=== PATIENT | female | born 1980 | race Caucasian/White ===

== ENCOUNTER 2017-07-13 11:13 | Inpatient (IN) | payer MEDICARE, OTHER ==
[2017-07-13] MEDS ORDERED: RX INFO: IV CONTRAST WAS GIVEN 1 EACH MISC MISCELLANE PRN (12:01)
[2017-07-13] MEDS ORDERED: PIPERACILLIN-TAZOBACTAM 3.375 GM in DEXTROSE/WATER 1 50ML.BAG IVPB STA (12:02)
[2017-07-13] MEDS ORDERED: KETOROLAC 60 MG/2 ML VIAL IVP STA (12:04)
--- NOTE | 2017-07-13 12:20 | ED ---
General Adult HPI - General Chief complaint: Urogenital Stated complaint: Female Time Seen by Provider: 07/13/17 11:20 Source: patient, RN notes reviewed Mode of arrival: ambulatory Limitations: no limitations - History of Present Illness Initial comments: This is a 36-year-old female who presents emergency Department stating that she thinks she has a abscess lateral to her left labia. Patient states started a few days ago and has progressively gotten bigger and more swollen and more painful. Patient states is now progressing up in the inguinal area and on the labia. Patient states extremely painful. Patient is a diabetic. Patient denies any fever chills. Patient denies abdominal pain. Patient denies any urinary symptoms - Related Data Home Medications Medication Instructions Recorded Confirmed Levothyroxine Sodium 100 mcg PO DAILY 07/13/17 07/13/17 metFORMIN HCL 1,000 mg PO BID 07/13/17 07/13/17 Allergies Allergy/AdvReac Type Severity Reaction Status Date / Time No Known Allergies Allergy Verified 07/13/17 11:21 Review of Systems ROS Statement: Those systems with pertinent positive or pertinent negative responses have been documented in the HPI. ROS Other: All systems not noted in ROS Statement are negative. Past Medical History Past Medical History: Diabetes Mellitus, Thyroid Disorder History of Any Multi-Drug Resistant Organisms: None Reported Past Surgical History: Hysterectomy Past Psychological History: No Psychological Hx Reported Smoking Status: Never smoker Past Alcohol Use History: Rare General Exam - General Exam Comments Initial Comments: GENERAL Patient is well-developed and well-nourished. Patient is in mild distress. EYES Patient's pupils are equal and round. Extraocular motion is intact SKIN Patient has what appears to be an abscess lateral to the left labia and the induration spreads superiorly as well as now into the labia. Area is exquisitely tender to touch and appears to be a cellulitis as well. There is no area of necrosis or skin breakdown NEURO The patient is alert and oriented 3 PYSCH Patient has normal interpersonal interactions. MUSCULOSKELETAL All 4 extremities have full range of motion Limitations: no limitations Course Vital Signs 07/13/17 11:19 Temperature 98.6 F Pulse Rate 115 H Respiratory 18 Rate Blood Pressure 145/93 O2 Sat by Pulse 97 Oximetry Medical Decision Making - Medical Decision Making Computed tomography scan showed a probable Bartholin cyst abscess with surrounding soft tissue cellulitis. I spoke with Dr. Niver and she accepted the patient. - Lab Data Result diagrams: 07/13/17 12:40 07/13/17 12:40 Lab Results 07/13/17 07/13/17 07/13/17 Range/Units 12:40 12:40 12:40 WBC 18.3 H (3.8-10.6) k/uL RBC 5.61 H (3.80-5.40) m/uL Hgb 13.7 (11.4-16.0) gm/dL Hct 43.9 (34.0-46.0) % MCV 78.2 L (80.0-100.0) fL MCH 24.5 L (25.0-35.0) pg MCHC 31.3 (31.0-37.0) g/dL RDW 15.0 (11.5-15.5) % Plt Count 272 (150-450) k/uL Neutrophils % 84 % Lymphocytes % 11 % Monocytes % 4 % Eosinophils % 1 % Basophils % 0 % Neutrophils # 15.3 H (1.3-7.7) k/uL Lymphocytes # 1.9 (1.0-4.8) k/uL Monocytes # 0.7 (0-1.0) k/uL Eosinophils # 0.2 (0-0.7) k/uL Basophils # 0.1 (0-0.2) k/uL Hypochromasia Moderate Sodium 139 (137-145) mmol/L Potassium 4.5 (3.5-5.1) mmol/L Chloride 100 (98-107) mmol/L Carbon Dioxide 22 (22-30) mmol/L Anion Gap 17 mmol/L BUN 12 (7-17) mg/dL Creatinine 0.70 (0.52-1.04) mg/dL Est GFR (CKD-EPI)AfAm >90 (>60 ml/min/1.73 sqM) Est GFR (CKD-EPI)NonAf >90 (>60 ml/min/1.73 sqM) Glucose 386 H (74-99) mg/dL Plasma Lactic Acid Adrian 1.4 (0.7-2.0) mmol/L Calcium 9.3 (8.4-10.2) mg/dL Total Bilirubin 0.9 (0.2-1.3) mg/dL AST 13 L (14-36) U/L ALT 30 (9-52) U/L Alkaline Phosphatase 142 H (38-126) U/L Total Protein 6.6 (6.3-8.2) g/dL Albumin 3.8 (3.5-5.0) g/dL Disposition Clinical Impression: Bartholin's gland abscess, Cellulitis, perineum, Hyperglycemia Disposition: ADMITTED IP TO THIS HOSP Referrals: Irma Harp MD [Primary Care Provider] - 1-2 days Time of Disposition: 14:34
[2017-07-13 13:00] LABS: Basophils # (A) 0.1 k/uL (0-0.2); Basophils % (A) 0 %; Eosinophils # (A) 0.2 k/uL (0-0.7); Eosinophils % (A) 1 %; HCT 43.9 % (34.0-46.0); HGB 13.7 gm/dL (11.4-16.0); Hypochromasia Moderate; Lymphocytes # (A) 1.9 k/uL (1.0-4.8); Lymphocytes % (A) 11 %; MCH 24.5 pg (25.0-35.0); MCHC 31.3 g/dL (31.0-37.0); MCV 78.2 fL (80.0-100.0); Mean Platelet Volume 8.2; Monocytes # (A) 0.7 k/uL (0-1.0); Monocytes % (A) 4 %; Neutrophils # (A) 15.3 k/uL (1.3-7.7); Neutrophils % (A) 84 %; Platelet Count 272 k/uL (150-450); RBC 5.61 m/uL (3.80-5.40); WBC 18.3 k/uL (3.8-10.6)
[2017-07-13 13:14] LABS: ALT 30 U/L (9-52); AST 13 U/L (14-36); Albumin 3.8 g/dL (3.5-5.0); Alkaline Phosphatase 142 U/L (38-126); Anion Gap 17 mmol/L; Blood Urea Nitrogen 12 mg/dL (7-17); Calcium 9.3 mg/dL (8.4-10.2); Carbon Dioxide 22 mmol/L (22-30); Chloride 100 mmol/L (98-107); Glucose 386 mg/dL (74-99); Potassium 4.5 mmol/L (3.5-5.1); Sodium 139 mmol/L (137-145); Total Bilirubin 0.9 mg/dL (0.2-1.3); Total Protein 6.6 g/dL (6.3-8.2)
--- NOTE | 2017-07-13 14:20 | CT ---
EXAMINATION TYPE: CT pelvis w con DATE OF EXAM: 07/13/2017 COMPARISON: NONE HISTORY: Vaginal cyst with drainage and pain CT DLP: 4052.2 mGycm Automated exposure control for dose reduction was used. CONTRAST: Performed with IV Contrast, patient injected with 100 mL of Isovue 300. FINDINGS: There is a fluid attenuated 1.0 x 1.8 cm left Bartholin's gland cyst with extensive surrounding infla mmatory changes of the left pelvic soft tissues extending into the pannus. No subcutaneous emphysema is seen at this time. Inflammatory changes extend to the level of the pubic symphysis superiorly and there are enlarged left inguinal lymph nodes measuring up to 1.2 cm, likely reactive. The uterus is surgically absent and surgical clips are seen within the pelvis. Ovaries may be surgica lly absent or atrophic as they're not identified. Few colonic diverticula are seen without pericoloni c fat stranding. No evidence of bowel dilatation. Urinary bladder is unremarkable. Osseous structures are intact. Visualized portions of the abdomen demonstrate hepatic steatosis, and indeterminant righ t adrenal gland lesion measuring 1.3 cm that is partially visualized, an indeterminate left adrenal g land lesion measuring 1.1 cm, pancreatic parenchymal atrophy, and abdominal aorta that is of normal c ourse and caliber. Kidneys are of symmetric enhancement. IMPRESSION: SMALL 1.8 X 1.0 CM LEFT BARTHOLIN'S GLAND CYST AND EXTENSIVE SUBCUTANEOUS SOFT TISSUES THAT STRANDING IN THE LEFT PERINEUM, LEFT PANNUS, AND EXTENDING INTO THE LEFT SUPERFICIAL INGUINAL REGION. NO SUBCU TANEOUS EMPHYSEMA IS SEEN TO SUGGEST CURRENT NECROTIZING FASCIITIS RADIOGRAPHICALLY, HOWEVER GIVEN TH E LOCATION AND EXTENT OF SUBCUTANEOUS FAT STRANDING, IN CASES WITH VERY HIGH CLINICAL SUSPICION IMAGI NG SHOULD NOT DELAY SURGICAL INTERVENTION.
[2017-07-13] MEDS ORDERED: SODIUM CHLORIDE 0.9% 1,000 ML IV ONE (14:34)
[2017-07-13 15:56] VITALS: BMI 62.0
[2017-07-13 16:19] LABS: Glucose,Whole Blood 373 mg/dL (75-99)
[2017-07-13] MEDS: INSULIN ASPART 100 UNIT/ML 1 ML 10 ML VIAL SQ SCH ×2 (16:34→22:38)
[2017-07-13 18:28] LABS: Appearance,Urine Clear (Clear); Bilirubin,Urine Negative (Negative); Blood,Urine Negative (Negative); Color,Urine Yellow; Glucose,Urine (UA) 4+ (Negative); Leukocyte Esterase,Urine Moderate (Negative); Nitrite,Urine Negative (Negative); Protein,Urine 1+ (Negative); RBC,Urine 14 /hpf (0-5); Squamous Epithelial Cell,Urine 10 /hpf (0-4); Urobilinogen,Urine <2.0 mg/dL (<2.0); WBC,Urine 11 /hpf (0-5)
[2017-07-13] MEDS: KETOROLAC 30 MG/ML 1 ML VIAL IVP PRN (18:28)
[2017-07-13 18:49] LABS: Ketones,Urine 2+ (Negative); Specific Gravity,Urine >1.050 (1.001-1.035)
[2017-07-13 19:55] LABS: Glucose,Whole Blood 369 mg/dL (75-99)
[2017-07-13] MEDS ORDERED: INSULIN DETEMIR 100 UNIT/ML 10 ML VIAL SQ SCH (21:00)
--- NOTE | 2017-07-13 22:12 | HP ---
HISTORY AND PHYSICAL DATE OF SERVICE: 07/13/2017 CHIEF COMPLAINTS: Labial pain. HISTORY OF PRESENT ILLNESS: This 36-year-old woman with a past medical history of diabetes type 2, history of hypothyroidism, history of hysterectomy, being followed by Dr. Irma Harp in the outpatient setting had previously uncontrolled diabetes mellitus for the last since up to 1 and 1/2 months ago according to her. The patient is following with a physician regularly at this time and the patient is noted to have pain and swelling of the labial area and the patient was found to have Bartholin gland abscess and with perineal cellulitis. The patient admitted for further evaluation and treatment. Blood sugar is elevated 386. There is no history of any fever, rigors or chills. No history of headache, loss of consciousness, seizures. PAST MEDICAL HISTORY: History of diabetes type 2, history of hypothyroidism, history of uterine problems, and a history of hysterectomy. MEDICATIONS ARE: 1. Metformin 1000 mg b.i.d. 2. Levothyroxine 200 mg p.o. daily. 3. Lipitor 10 mg q.h.s. 4. Cozaar 25 mg q.h.s. ALLERGIES: None. FAMILY HISTORY: History of diabetes in the family. SOCIAL HISTORY: Previous history of smoking. No history of current smoking. No alcohol intake. REVIEW OF SYSTEMS: ENT: No diminished vision, no diminished hearing. Cardiovascular system: No angina or palpitations. Respiratory: No cough or hemoptysis. GI as mentioned earlier. : As mentioned earlier. Nervous system: No numbness or weakness. Allergy/Immunology: No asthma or hayfever. Musculoskeletal as mentioned earlier. Hematology/oncology: No history of anemia. Endocrine: Diabetes and hypothyroidism. Constitutional: As mentioned earlier. Dermatology: Negative. Rheumatology: Negative. Psychiatric: As mentioned earlier. PHYSICAL EXAMINATION: The patient is alert and oriented times three. Pulse 115. Blood pressure is 130/72. Respiratory rate 16, temperature 99 degrees, pulse ox 94% on room air. HEENT: Conjunctivae normal. Oral mucosa moist. NECK is no jugular venous distention. No carotid bruit. No lymph node enlargement. CARDIOVASCULAR system: S1, S2. RESPIRATORY: Breath sounds diminished in the bases. No rhonchi and no crackles. ABDOMEN: Soft, obese, nontender. No mass palpable. LEGS: No edema and no swelling. NERVOUS SYSTEM: Higher functions as mentioned earlier. Moves all four limbs. No focal motor or sensory deficits. LYMPHATICS: No lymph nodes palpable in the neck, axillae or groin. SKIN: No ulcer, rash or bleeding. LABS: WBC 18.8, hemoglobin 13.7, glucose 80. ASSESSMENT: 1. Possible Bartholin's gland abscess with cellulitis. 2. Increased WBC. 3. Diabetes type 2, uncontrolled with hyperglycemia. 4. Obesity with body mass index 62. 5. Hypothyroidism. 6. History of hysterectomy. RECOMMENDATION AND DISCUSSION: In this 36-year-old woman who presented with multiple complex medical issues, we will monitor the patient closely, continue the current medications, continue symptomatic treatment. Otherwise at this time I recommend resume the metformin. The hemoglobin A1c is not available. However, I would recommend initiate Lantus 20 units and continue to monitor. I would also recommend mealtime coverage as well plus scale as well. DVT prophylaxis. Otherwise I will closely follow with [facility] TECHNICIAN Dr. Haywood. Prognosis guarded because of multiple complex medical issues. Copy of dictation forwarded to Dr. Irma Harp. Once again, the prognosis is guarded. MMODL / IJN: [id number] /
[2017-07-13] MEDS: PIPERACILLIN-TAZOBACTAM 3.375 GM in DEXTROSE/WATER 1 50ML.BAG IVPB SCH (22:36)
[2017-07-13] MEDS: HEPARIN SODIUM,PORCINE 5,000 UNIT/ML 1 ML VIAL SQ SCH (22:36)
[2017-07-13] MEDS: LOSARTAN 25 MG TAB PO SCH (22:37)
[2017-07-13] MEDS: ATORVASTATIN 10 MG TAB PO SCH (22:37)
[2017-07-13] MEDS: metFORMIN 500 MG TAB PO SCH (22:37)
[2017-07-13] MEDS: ACETAMINOPHEN TAB 325 MG TAB PO PRN (23:59)
[2017-07-14] MEDS: LEVOTHYROXINE 100 MCG TAB PO SCH (05:00)
[2017-07-14] MEDS: PIPERACILLIN-TAZOBACTAM 3.375 GM in DEXTROSE/WATER 1 50ML.BAG IVPB SCH ×3 (06:30→20:52)
[2017-07-14] MEDS: KETOROLAC 30 MG/ML 1 ML VIAL IVP PRN ×3 (06:44→22:09)
[2017-07-14 06:47] LABS: Glucose,Whole Blood 301 mg/dL (75-99)
[2017-07-14] MEDS: INSULIN ASPART 100 UNIT/ML 1 ML 10 ML VIAL SQ SCH ×7 (08:14→20:53)
[2017-07-14] MEDS: HEPARIN SODIUM,PORCINE 5,000 UNIT/ML 1 ML VIAL SQ SCH ×2 (08:15→20:53)
[2017-07-14] MEDS: metFORMIN 500 MG TAB PO SCH ×2 (08:15→20:52)
--- NOTE | 2017-07-14 09:21 | P.OBCN ---
History of Present Illness Consult date: 07/14/17 Reason for consult: pelvic infection Chief complaint: Left vulvar pain and swelling History of present illness: This is a 36-year-old female 1 para 100 one last menstrual period 2009 at the time of TRAE/BSO and staging procedure at [facility] for uterine cancer. Patient presents through the emergency room last night, with a 2 day history of left groin swelling. She states that the area has become increasingly tender and enlarged. She was seen in the emergency room where examination was consistent with a left vulvar abscess, emergency room physicians felt this was a Bartholin's cyst. White count was elevated at 18.3, decision was made for admission and antibiotics. Patient was started on Zosyn to 8 hours IV piggyback. Review of systems is otherwise negative. Past medical history is significant for uncontrolled diabetes, I Poehler thyroidism. Current medications metformin 1000 mg twice a day, patient states that she ran out of medication several months ago and has not been taking this as directed. Levothyroxine 200 mg daily, losartan daily, Lipitor daily. ALLERGIES none known. Past surgical history staging procedure for uterine cancer in 2009 at [facility]. Tonsillectomy and adenoidectomy as a child. Past obstetric history normal spontaneous vaginal delivery of a liveborn male infant in 1999, 7 lbs. 7 oz. Patient denies GC chlamydia HSV or HPV infections. She is not sexually active at this time. Social history is negative for tobacco alcohol or drug use. She is single and unemployed, on Medicare. Family history significant for uterine cancer in the maternal grandmother. On exam this is a very large white female, 5 foot 9 inches, 420 pounds, current pulse 105, blood pressure 109/61, T-max 99.3. HEENT exam reveals good dentition , no obvious thyromegaly, no lymphadenopathy. Chest is clear to auscultation in all ordonez anteriorly and posteriorly. Cardiac exam reveals slight tachycardia, no obvious murmur click or rub. Breast exam reveals breasts to be bilaterally symmetric to inspection with no skin dimpling, nipple discharge, or axillary adenopathy. Abdomen is morbidly obese, there is no obvious organosplenomegaly and no CVA tenderness. Extremities reveal diminished peripheral pulses, normal reflexes. On pelvic exam there is a left inguinal abscess noted, this is in the crease between the large pannus in the upper thigh on the left. There is surrounding cellulitis, erythema and edema. There is an abscess that measures approximate 2 cm in the crease, this has opened spontaneously and is draining bloody purulent fluid. Aerobic and anaerobic cultures are performed. There is another area of opening just superior to this that is also draining purulent fluid, non-malodorous. I reviewed the computed tomography scan findings with the radiologist station superintendent, there is no obvious large mass that would be amenable to incision and drainage. Impression: Left labial abscess in the setting of uncontrolled diabetes, blood sugar on admission 386. The abscess has spontaneously opened and is draining. There is no area for surgical intervention in my judgment. Plan: Continue medical management with Zosyn. I am recommending twice daily washing of the area with antibacterial soap, this has been done at the bedside this morning. Patient has never had a mammogram, consideration for same during this hospitalization. Thank you for the consult. Review of Systems Negative except as in HPI Past Medical History Past Medical History: Cancer, Diabetes Mellitus, Thyroid Disorder Additional Past Medical History / Comment(s): uterine cancer 2010, morbid obesity History of Any Multi-Drug Resistant Organisms: None Reported Past Surgical History: Hysterectomy Past Anesthesia/Blood Transfusion Reactions: Blood Transfusion Reaction Additional Past Anesthesia/Blood Transfusion Reaction / Comm: previous multiple blood transfusions- has pink card she is to carry with her but does not have it at this time. Past Psychological History: No Psychological Hx Reported Smoking Status: Former smoker Past Alcohol Use History: Rare - Past Family History Mother Family Medical History: Diabetes Mellitus Father Family Medical History: Congestive Heart Failure (CHF) Medications and Allergies Home Medications Medication Instructions Recorded Confirmed Type Atorvastatin [Lipitor] 10 mg PO HS 07/13/17 07/13/17 History Levothyroxine Sodium [Synthroid] 200 mcg PO DAILY 07/13/17 07/13/17 History Losartan [Cozaar] 25 mg PO HS 07/13/17 07/13/17 History metFORMIN HCL 1,000 mg PO BID 07/13/17 07/13/17 History Allergies Allergy/AdvReac Type Severity Reaction Status Date / Time No Known Allergies Allergy Verified 07/13/17 14:44 Exam - Vital Signs Vital signs: Vital Signs Temp Pulse Pulse Resp BP BP Pulse Ox 07/14/17 07:00 98 F 118 H 18 130/81 95 07/14/17 01:13 99.3 F 105 H 17 109/61 95 07/13/17 22:34 98.9 F 105 H 16 132/82 95 07/13/17 16:20 99.0 F 115 H 16 135/74 94 L 07/13/17 15:00 99.9 F H 101 H 20 165/79 99 07/13/17 13:21 108 H 20 155/63 99 07/13/17 11:19 98.6 F 115 H 18 145/93 97 Intake and Output 07/13/17 07/14/17 07/14/17 22:59 06:59 14:59 Other: Voiding Method Toilet # Voids 1 1 Weight 190.509 kg See dictation under HPI please Results Result Diagrams: 07/13/17 12:40 07/13/17 12:40 Abnormal Lab Results - Last 24 Hours (Table) 07/13/17 07/13/17 07/13/17 Range/Units 12:40 12:40 16:17 WBC 18.3 H (3.8-10.6) k/uL RBC 5.61 H (3.80-5.40) m/uL MCV 78.2 L (80.0-100.0) fL MCH 24.5 L (25.0-35.0) pg Neutrophils # 15.3 H (1.3-7.7) k/uL Glucose 386 H (74-99) mg/dL POC Glucose (mg/dL) 373 H (75-99) mg/dL AST 13 L (14-36) U/L Alkaline Phosphatase 142 H (38-126) U/L Ur Specific [place] (1.001-1.035) Urine Protein (Negative) Urine Glucose (UA) (Negative) Urine Ketones (Negative) Ur Leukocyte Esterase (Negative) Urine RBC (0-5) /hpf Urine WBC (0-5) /hpf Ur Squamous Epith Cells (0-4) /hpf 07/13/17 07/13/17 07/14/17 Range/Units 18:00 19:48 06:44 WBC (3.8-10.6) k/uL RBC (3.80-5.40) m/uL MCV (80.0-100.0) fL MCH (25.0-35.0) pg Neutrophils # (1.3-7.7) k/uL Glucose (74-99) mg/dL POC Glucose (mg/dL) 369 H 301 H (75-99) mg/dL AST (14-36) U/L Alkaline Phosphatase (38-126) U/L Ur Specific [place] >1.050 H (1.001-1.035) Urine Protein 1+ H (Negative) Urine Glucose (UA) 4+ H (Negative) Urine Ketones 2+ H (Negative) Ur Leukocyte Esterase Moderate H (Negative) Urine RBC 14 H (0-5) /hpf Urine WBC 11 H (0-5) /hpf Ur Squamous Epith Cells 10 H (0-4) /hpf Microbiology - Last 24 Hours (Table) 07/13/17 18:00 Urine Culture - Preliminary Urine,Clean Catch Assessment and Plan Assessment: Left inguinal abscess, surrounding cellulitis and edema. Morbid obesity. Uncontrolled diabetes. Plan: I agree with Zosyn IV piggyback every 8 hours. There is no area of omental to incision and drainage, and the lesion has spontaneously opened in 2 areas and is draining purulence. Aerobic and anaerobic cultures performed and pending. Time with Patient: Greater than 30
[2017-07-14] MEDS: ACETAMINOPHEN TAB 325 MG TAB PO PRN ×2 (09:42→19:14)
[2017-07-14 11:09] LABS: Glucose,Whole Blood 278 mg/dL (75-99)
[2017-07-14] MEDS ORDERED: INSULIN DETEMIR 100 UNIT/ML 10 ML VIAL SQ STA (14:31)
[2017-07-14 16:16] LABS: Basophils % (A) 0 %; Eosinophils # (A) 0.2 k/uL (0-0.7); Eosinophils % (A) 2 %; HCT 40.7 % (34.0-46.0); HGB 12.4 gm/dL (11.4-16.0); Hypochromasia Marked; Lymphocytes # (A) 1.9 k/uL (1.0-4.8); Lymphocytes % (A) 13 %; MCH 24.1 pg (25.0-35.0); MCHC 30.4 g/dL (31.0-37.0); MCV 79.4 fL (80.0-100.0); Monocytes # (A) 0.4 k/uL (0-1.0); Monocytes % (A) 3 %; Neutrophils # (A) 11.3 k/uL (1.3-7.7); Neutrophils % (A) 81 %; Platelet Count 285 k/uL (150-450); RBC 5.13 m/uL (3.80-5.40); RDW 15.1 % (11.5-15.5); WBC 13.9 k/uL (3.8-10.6)
[2017-07-14 16:27] LABS: Anion Gap 18 mmol/L; Blood Urea Nitrogen 19 mg/dL (7-17); Calcium 8.7 mg/dL (8.4-10.2); Carbon Dioxide 21 mmol/L (22-30); Chloride 103 mmol/L (98-107); Glucose 296 mg/dL (74-99); Sodium 142 mmol/L (137-145)
[2017-07-14 16:37] LABS: Glucose,Whole Blood 280 mg/dL (75-99)
--- NOTE | 2017-07-14 19:07 | PN ---
PROGRESS NOTE DATE OF SERVICE: 07/14/2017 This 36-year-old woman was admitted with labial pain and possible cellulitis, a labial abscess and cellulitis, which the patient was evaluated by Dr. Haywood and a spontaneous drainage was noted, so Dr. Haywood is recommending to continue with current line of treatment, including IV antibiotics. Cultures are pending at this time. No chest pain or palpitations. The patient also had uncontrolled diabetes mellitus. Medications are being adjusted. EXAM: Alert and oriented x3. Pulse 101, blood pressure 109/76, respirations 16, temperature 99 degrees, pulse ox 93% on room air. HEENT: Conjunctivae normal. Oral mucosa moist. NECK: No jugular venous distention. No carotid bruits. No lymph node enlargement. CARDIOVASCULAR: S1, S2 muffled. RESPIRATORY: Breath sounds diminished in the bases. No scattered rhonchi. No crackles. ABDOMEN: Soft, obese, nontender. No mass palpable. LEGS: No edema. No swelling. NERVOUS SYSTEM: Higher functions as mentioned earlier. Moves all 4 limbs. No focal motor or sensory deficits. LYMPHATIC: No lymphadenopathy in neck or axillae. SKIN: No ulcer, rash or bleeding. LABS: WBC 18.3, glucose is 278. Other labs are noted. ASSESSMENT: 1. Acute labial abscess with cellulitis with failure of outpatient treatment. 2. Increased WBC. 3. Diabetes mellitus type 2, uncontrolled with hyperglycemia. 4. Obesity with a body mass index of 62. 5. Hypothyroidism. 6. Hysterectomy. RECOMMENDATIONS AND DISCUSSION: Recommend to continue current medical management and symptomatic treatment. I would recommend to continue with IV antibiotics and I would also recommend an infectious disease evaluation. Otherwise, DVT prophylaxis. Initial CT scan noted. Will continue to monitor. The repeat labs are not available today. We will order them. Otherwise, continue to monitor. The blood sugars have been noted and increased the Lantus to 40 units with pre-meal insulin, also. Further recommendations to follow. MMODL / IJN: [id number] /
[2017-07-14 20:30] LABS: Glucose,Whole Blood 307 mg/dL (75-99)
[2017-07-14] MEDS: ATORVASTATIN 10 MG TAB PO SCH (20:52)
[2017-07-14] MEDS: LOSARTAN 25 MG TAB PO SCH (20:52)
[2017-07-14] MEDS: INSULIN DETEMIR 100 UNIT/ML 10 ML VIAL SQ SCH (20:53)
[2017-07-14 22:17] LABS: Hemoglobin A1C 11.8 % (4.0-6.0)
--- NOTE | 2017-07-14 23:32 | CONS ---
CONSULTATION DATE OF SERVICE: 07/14/2017 REASON FOR CONSULTATION: Left perineal abscess. HISTORY OF PRESENT ILLNESS: The patient is a 36 -year-old female with past medical history significant for uterine cancer. The patient is status post total abdominal hysterectomy and bilateral salpingo-oophorectomy, diagnosed at [facility] back in 2009. The patient presented to the ER at [facility] with chief complaint of pain and swelling to the left groin area that had been going on for about 2 days. The patient did mention that started as a small pimple and has gradually increased in size. She did try to squeeze anything out of it. Subsequently did become more swollen and red and painful pain described to be throbbing almost 7 to 8/10, and no radiation. The patient did have associated fever and chills with it. With these symptoms, the patient presented to the hospital. She was evaluated by the ER physician. She did have fever of 99.9, white count was elevated at 19.3. The patient did have a pelvic CT obtained which did show a small 1.1 cm left Bartholin gland cyst and extensive subcutaneous soft tissue stranding in the left perineum, left pannus and extending into the left superficial inguinal region. No subcutaneous emphysema is seen to suggest necrotizing fascitis . The patient did have drainage from that area which has been cultured. She was started on Zosyn and admitted to the hospital. She has been seen by [facility]. Infectious Disease was consulted for further recommendation regarding antibiotic therapy. REVIEW OF SYSTEMS: CONSTITUTIONAL: Positive for weakness along with the fever. Eyes: No complaint. ENT no complaint. Respiratory no complaint. Cardiovascular no complaint. Genitourinary as per HPI. GASTROINTESTINAL: Some nausea but no vomiting. Musculoskeletal: No complaint. Psychological: No complaint. Endocrine: Blood sugar remains to be high. Neurologic: No complaint. PAST MEDICAL HISTORY: Significant for diabetes mellitus, uterine cancer and hypothyroidism. PAST SURGICAL HISTORY: Hysterectomy. SOCIAL HISTORY: Denies smoking. Rarely drinks. No drug use. FAMILY HISTORY: No pertinent findings noticed. ALLERGIES: No known drug allergies. MEDICATION: Medications include the patient is currently on Tylenol, Lipitor, heparin, NovoLog, Levemir, Toradol, Synthroid, Cozaar, Glucophage and Zosyn at 3.375 q.8 hours. EXAMINATION: Blood pressure is 109/76, pulse of 101, temperature of 99. She is 93% on room air. GENERAL DESCRIPTION: The patient is a middle aged female lying in bed in no distress. No tachypnea or respiration use. HEENT examination: No pallor or scleral icterus. Oral mucosa membranes are moist with no pharyngeal thrush. NECK : Trachea central. No thyromegaly. LUNGS: Unlabored breathing, clear to auscultation anteriorly. No wheeze or crackles. Heart S1, S2. Regular rate and rhythm. ABDOMEN: Soft, no tenderness. No guarding. No rigidity. Examination of the pelvic area in the presence of the RN did shows she did have swelling of the left labia majora which is slight indurated. No drainage was noticed though. No fluctuation. EXTREMITIES: No edema of feet. SKIN: Examination revealed no rash or mass palpable. NEUROLOGICAL: Patient is awake, alert, oriented x3. Mood and affect normal. LABS: Hemoglobin is 12.4, white count of 13.9, the BUN of 19, creatinine 0.71. Electrolytes have been normal. Blood cultures obtained are currently pending. The wound cultures are currently pending. DIAGNOSTIC IMPRESSION AND PLAN: Patient with left labial abscess with extensive spread to the subcutaneous area in the groin could be more likely from a gram-negative pathogen in view of the area of location in a patient who did have a component of sepsis on presentation to the hospital with a fever, elevated white count and tachycardia, status post spontaneous drainage. PLAN: 1. The patient will be given Zosyn 3.375 q.8h that should cover for aerobic, anaerobic gram-negative more likely responsible for this infection in view of uncontrolled diabetes. 2. Aggressive IV fluid. 3. The patient should be watched closely and if worsening may need surgical drainage in order to completely clear this infection. 4. We will follow up on the clinical condition as well as cultures to further adjust medication if needed. Thank you for this consultation. Will follow this patient along with you. MMODL / IJN: [id number] / KAVIN
[2017-07-15] MEDS: PIPERACILLIN-TAZOBACTAM 3.375 GM in DEXTROSE/WATER 1 50ML.BAG IVPB SCH (05:13)
[2017-07-15] MEDS: LEVOTHYROXINE 100 MCG TAB PO SCH (06:17)
[2017-07-15] MEDS: KETOROLAC 30 MG/ML 1 ML VIAL IVP PRN ×2 (06:17→17:05)
[2017-07-15 07:18] LABS: Basophils % (A) 0 %; Eosinophils # (A) 0.3 k/uL (0-0.7); Eosinophils % (A) 2 %; HCT 40.5 % (34.0-46.0); HGB 12.5 gm/dL (11.4-16.0); Hypochromasia Slight; Lymphocytes # (A) 1.7 k/uL (1.0-4.8); Lymphocytes % (A) 11 %; MCH 23.9 pg (25.0-35.0); MCHC 30.9 g/dL (31.0-37.0); MCV 77.3 fL (80.0-100.0); Mean Platelet Volume 8.6; Microcytosis Slight; Monocytes # (A) 0.5 k/uL (0-1.0); Monocytes % (A) 4 %; Neutrophils # (A) 12.6 k/uL (1.3-7.7); Neutrophils % (A) 83 %; Platelet Count 323 k/uL (150-450); RBC 5.24 m/uL (3.80-5.40); RDW 15.4 % (11.5-15.5); WBC 15.2 k/uL (3.8-10.6)
[2017-07-15 07:35] LABS: Glucose,Whole Blood 217 mg/dL (75-99)
[2017-07-15 07:51] LABS: Anion Gap 15 mmol/L; Blood Urea Nitrogen 19 mg/dL (7-17); Carbon Dioxide 23 mmol/L (22-30); Chloride 102 mmol/L (98-107); Glucose 212 mg/dL (74-99); Potassium 4.3 mmol/L (3.5-5.1); Sodium 140 mmol/L (137-145)
[2017-07-15] MEDS: INSULIN ASPART 100 UNIT/ML 1 ML 10 ML VIAL SQ SCH ×7 (07:58→22:17)
[2017-07-15] MEDS: metFORMIN 500 MG TAB PO SCH ×2 (08:00→22:14)
[2017-07-15] MEDS: HEPARIN SODIUM,PORCINE 5,000 UNIT/ML 1 ML VIAL SQ SCH ×2 (08:00→22:15)
--- NOTE | 2017-07-15 08:21 | P.PN ---
Subjective Progress Note Date: 07/15/17 Principal diagnosis: Left inguinal abscess Feeling better, pain improved, wound with continued drainage. Objective - Vital Signs Vital signs: Vital Signs Temp 98.0 F 07/15/17 07:45 Pulse 102 H 07/15/17 07:45 Resp 16 07/15/17 07:45 BP 124/79 07/15/17 07:45 Pulse Ox 95 07/15/17 07:45 Intake & Output 07/14/17 07/15/17 07/15/17 18:59 06:59 18:59 Intake Total 460 Balance 460 Weight 190.509 kg Intake: Intake, IV Titration 100 Amount Piperacillin-Tazobactam 3 100 .375 gm In Dextrose/Water 1 50ml.bag @ 12.5 mls/hr IVPB Q8H [facility] Rx#: [id number] Oral 360 Other: Voiding Method Toilet # Voids 3 - Constitutional General appearance: Present: morbidly obese - EENT Eyes: Present: PERRLA ENT: Present: hearing grossly normal - Neck Neck: Present: normal ROM - Respiratory Respiratory: bilateral: CTA - Cardiovascular Rhythm: regular - Gastrointestinal Gastrointestinal Comment(s): Morbidly obese pannus. Active bowel sounds. - Genitourinary Genitourinary Comment(s): Left inguinal abscess inspected. 2 spontaneous openings are probed, loculations removed. A large amount of purulent sanguinous drainage is noted, non-malodorous. Surrounding edema is less, erythema is also improved. - Integumentary Integumentary: Present: normal - Neurologic Neurologic: Present: CNII-XII intact - Musculoskeletal Musculoskeletal: Present: strength equal bilaterally - Psychiatric Psychiatric: Present: A&O x's 3, appropriate affect, intact judgment & insight - Labs CBC & Chem 7: 07/15/17 06:29 07/15/17 06:29 Labs: Abnormal Lab Results - Last 24 Hours (Table) 07/13/17 07/14/17 07/14/17 Range/Units 12:40 11:03 15:57 WBC 13.9 H (3.8-10.6) k/uL MCV 79.4 L (80.0-100.0) fL MCH 24.1 L (25.0-35.0) pg MCHC 30.4 L (31.0-37.0) g/dL Neutrophils # 11.3 H (1.3-7.7) k/uL Carbon Dioxide (22-30) mmol/L BUN (7-17) mg/dL Glucose (74-99) mg/dL POC Glucose (mg/dL) 278 H (75-99) mg/dL Hemoglobin A1c 11.8 H (4.0-6.0) % 07/14/17 07/14/17 07/14/17 Range/Units 15:57 16:31 20:06 WBC (3.8-10.6) k/uL MCV (80.0-100.0) fL MCH (25.0-35.0) pg MCHC (31.0-37.0) g/dL Neutrophils # (1.3-7.7) k/uL Carbon Dioxide 21 L (22-30) mmol/L BUN 19 H (7-17) mg/dL Glucose 296 H (74-99) mg/dL POC Glucose (mg/dL) 280 H 307 H (75-99) mg/dL Hemoglobin A1c (4.0-6.0) % 07/15/17 07/15/17 07/15/17 Range/Units 06:29 06:29 07:25 WBC 15.2 H (3.8-10.6) k/uL MCV 77.3 L (80.0-100.0) fL MCH 23.9 L (25.0-35.0) pg MCHC 30.9 L (31.0-37.0) g/dL Neutrophils # 12.6 H (1.3-7.7) k/uL Carbon Dioxide (22-30) mmol/L BUN 19 H (7-17) mg/dL Glucose 212 H (74-99) mg/dL POC Glucose (mg/dL) 217 H (75-99) mg/dL Hemoglobin A1c (4.0-6.0) % Microbiology - Last 24 Hours (Table) 07/13/17 12:40 Blood Culture - Preliminary Blood No Growth after 24 hours 07/14/17 07:19 Gram Stain - Preliminary Groin Wound Culture - Preliminary 07/14/17 07:19 Anaerobic Culture - Preliminary Groin Assessment and Plan Assessment: Left inguinal abscess, draining spontaneously, cultures pending Plan: Continue Zosyn. Infectious disease consult obtained. Clinical improvement is noted. Time with Patient: Less than 30
[2017-07-15 11:40] LABS: Glucose,Whole Blood 239 mg/dL (75-99)
[2017-07-15] MEDS: traMADol 50 MG TAB PO PRN ×2 (12:44→22:15)
--- NOTE | 2017-07-15 15:55 | PN ---
PROGRESS NOTE DATE OF SERVICE: 07/15/2017. REASON FOR FOLLOW UP: Left perianal abscess. INTERVAL HISTORY: The patient is currently afebrile. Pain to the left hip has slightly decreased. The patient denies having any chest pain or shortness of breath, cough, abdominal pain and no diarrhea. EXAMINATION: On examination, blood pressure 124/79, pulse of 102, temperature of 98, she is 95% on room air. General description is a middle aged female, lying in bed in no distress. Respiratory system: Unlabored breathing, clear to auscultation anteriorly. Heart S1, S2 regular rate and rhythm. Abdomen soft, no tenderness. Left labial area still has some swelling. Minimal drainage was noticed. No fluctuation. LAB: White count 15.2, BUN of 19, creatinine 0.76. Wound culture finalized with group B strep. DIAGNOSTIC IMPRESSION AND PLAN: Patient with left labial abscess with group B strep. We will discontinue Zosyn. Start the patient on cefazolin 3 g q.8 hours in addition to the clindamycin and watch clinical course closely. Continue supportive care. MMODL / IJN: [id number] /
[2017-07-15] MEDS: CLINDAMYCIN 900 MG in DEXTROSE 5% IN WATER 50 ML IVPB SCH ×4 (16:58→23:34)
[2017-07-15 17:02] LABS: Glucose,Whole Blood 249 mg/dL (75-99)
--- NOTE | 2017-07-15 17:22 | P.PN ---
Subjective 30-year-old female admitted with the Bartholin's cyst patient is spontaneously draining and patient was a valid by gynecology and infectious disease service. Wound cultures are growing streptococci patient and ceftezole in as well as clindamycin. Constitutional: Denied any fatigue denied any fever. Cardio vascular: denied any chest pain, palpitations Gastrointestinal denied any nausea vomiting Pulmonary: Denied any shortness of breath cough Neurologic denied any new focal deficits Objective - Vital Signs Vital signs: Vital Signs Temp 98.9 F 07/15/17 14:10 Pulse 103 H 07/15/17 14:10 Resp 20 07/15/17 14:10 BP 111/76 07/15/17 14:10 Pulse Ox 95 07/15/17 14:10 Intake & Output 07/14/17 07/15/17 07/15/17 18:59 06:59 18:59 Intake Total 460 600 Balance 460 600 Weight 190.509 kg 190.509 kg Intake: Intake, IV Titration 100 Amount Piperacillin-Tazobactam 3 100 .375 gm In Dextrose/Water 1 50ml.bag @ 12.5 mls/hr IVPB Q8H [facility] Rx#: [id number] Oral 360 600 Other: Voiding Method Toilet # Voids 3 4 - Exam PHYSICAL EXAMINATION: GENERAL: The patient is alert and oriented x3, not in any acute distress. Morbidly obese HEENT: Pupils are round and equally reacting to light. EOMI. No scleral icterus. No conjunctival pallor. Normocephalic, atraumatic. No pharyngeal erythema. No thyromegaly. CARDIOVASCULAR: S1 and S2 present. No murmurs, rubs, or gallops. PULMONARY: Chest is clear to auscultation, no wheezing or crackles. ABDOMEN: Soft, nontender, nondistended, normoactive bowel sounds. No palpable organomegaly. MUSCULOSKELETAL: No joint swelling or deformity. EXTREMITIES: No cyanosis, clubbing, or pedal edema. NEUROLOGICAL: Gross neurological examination did not reveal any focal deficits. Genitourinary: Did not examine and patient was already examined by PHY THERAPIST services SKIN: No rashes. - Labs CBC & Chem 7: 07/15/17 06:29 07/15/17 06:29 Labs: Abnormal Lab Results - Last 24 Hours (Table) 07/13/17 07/14/17 07/15/17 Range/Units 12:40 20:06 06:29 WBC 15.2 H (3.8-10.6) k/uL MCV 77.3 L (80.0-100.0) fL MCH 23.9 L (25.0-35.0) pg MCHC 30.9 L (31.0-37.0) g/dL Neutrophils # 12.6 H (1.3-7.7) k/uL BUN (7-17) mg/dL Glucose (74-99) mg/dL POC Glucose (mg/dL) 307 H (75-99) mg/dL Hemoglobin A1c 11.8 H (4.0-6.0) % 07/15/17 07/15/17 07/15/17 Range/Units 06:29 07:25 11:38 WBC (3.8-10.6) k/uL MCV (80.0-100.0) fL MCH (25.0-35.0) pg MCHC (31.0-37.0) g/dL Neutrophils # (1.3-7.7) k/uL BUN 19 H (7-17) mg/dL Glucose 212 H (74-99) mg/dL POC Glucose (mg/dL) 217 H 239 H (75-99) mg/dL Hemoglobin A1c (4.0-6.0) % 07/15/17 Range/Units 17:00 WBC (3.8-10.6) k/uL MCV (80.0-100.0) fL MCH (25.0-35.0) pg MCHC (31.0-37.0) g/dL Neutrophils # (1.3-7.7) k/uL BUN (7-17) mg/dL Glucose (74-99) mg/dL POC Glucose (mg/dL) 249 H (75-99) mg/dL Hemoglobin A1c (4.0-6.0) % Microbiology - Last 24 Hours (Table) 07/13/17 12:40 Blood Culture - Preliminary Blood No Growth after 48 hours 07/14/17 07:19 Gram Stain - Final Groin Wound Culture - Final Strep agalactiae - (group b) Assessment and Plan Plan: -Bartholin's abscess: With spontaneous drainage patient is presently on ceftezole and for streptococci in the wound cultures and with the patient is also on clindamycin -Type 2 diabetes mellitus: Continue with present regimen monitor blood sugars titrate accordingly -Hypothyroidism -Morbid obesity
[2017-07-15 20:10] LABS: Glucose,Whole Blood 243 mg/dL (75-99)
[2017-07-15] MEDS: ATORVASTATIN 10 MG TAB PO SCH (22:14)
[2017-07-15] MEDS: LOSARTAN 25 MG TAB PO SCH (22:14)
[2017-07-15] MEDS: INSULIN DETEMIR 100 UNIT/ML 10 ML VIAL SQ SCH (22:16)
[2017-07-16] MEDS ORDERED: KETOROLAC 30 MG/ML 1 ML VIAL ONE (03:15)
[2017-07-16] MEDS: LEVOTHYROXINE 100 MCG TAB PO SCH (06:26)
[2017-07-16 07:21] LABS: Glucose,Whole Blood 209 mg/dL (75-99)
[2017-07-16 07:32] LABS: Basophils % (A) 0 %; Eosinophils # (A) 0.2 k/uL (0-0.7); Eosinophils % (A) 2 %; HGB 11.9 gm/dL (11.4-16.0); Hypochromasia Marked; Lymphocytes # (A) 1.7 k/uL (1.0-4.8); Lymphocytes % (A) 14 %; MCH 24.3 pg (25.0-35.0); MCHC 31.2 g/dL (31.0-37.0); MCV 78.1 fL (80.0-100.0); Monocytes # (A) 0.4 k/uL (0-1.0); Monocytes % (A) 3 %; Neutrophils # (A) 9.5 k/uL (1.3-7.7); Neutrophils % (A) 79 %; Platelet Count 302 k/uL (150-450); RBC 4.87 m/uL (3.80-5.40); RDW 14.9 % (11.5-15.5)
[2017-07-16] MEDS: metFORMIN 500 MG TAB PO SCH ×2 (07:48→20:41)
[2017-07-16] MEDS: HEPARIN SODIUM,PORCINE 5,000 UNIT/ML 1 ML VIAL SQ SCH ×2 (07:48→20:40)
[2017-07-16] MEDS: INSULIN ASPART 100 UNIT/ML 1 ML 10 ML VIAL SQ SCH ×7 (07:49→20:40)
[2017-07-16] MEDS: KETOROLAC 30 MG/ML 1 ML VIAL IVP PRN ×2 (07:50→23:57)
[2017-07-16 08:02] LABS: Anion Gap 14 mmol/L; Blood Urea Nitrogen 15 mg/dL (7-17); Calcium 8.9 mg/dL (8.4-10.2); Carbon Dioxide 23 mmol/L (22-30); Chloride 104 mmol/L (98-107); Glucose 209 mg/dL (74-99); Potassium 4.1 mmol/L (3.5-5.1); Sodium 141 mmol/L (137-145)
[2017-07-16] MEDS: traMADol 50 MG TAB PO PRN ×2 (11:11→19:30)
[2017-07-16] MEDS: CLINDAMYCIN 900 MG in DEXTROSE 5% IN WATER 50 ML IVPB SCH ×4 (11:11→20:39)
[2017-07-16 11:38] LABS: Glucose,Whole Blood 205 mg/dL (75-99)
--- NOTE | 2017-07-16 13:51 | P.PN ---
Subjective 30-year-old female admitted with the Bartholin's cyst patient is spontaneously draining and patient was a valid by gynecology and infectious disease service. Wound cultures are growing streptococci patient and ceftezole in as well as clindamycin. 07/16/2017 Patient is clinically doing much better, infectious disease is recommending one more day of hospitalization IV antibiotics and patient may need a PICC line and oriented antibiotics as an outpatient considering her really bad Bartholin's abscess Constitutional: Denied any fatigue denied any fever. Cardio vascular: denied any chest pain, palpitations Gastrointestinal denied any nausea vomiting Pulmonary: Denied any shortness of breath cough Neurologic denied any new focal deficits Objective - Vital Signs Vital signs: Vital Signs Temp 97 F L 07/16/17 07:35 Pulse 79 07/16/17 07:35 Resp 20 07/16/17 07:35 BP 129/62 07/16/17 07:35 Pulse Ox 97 07/16/17 07:35 Intake & Output 07/15/17 07/16/17 07/16/17 18:59 06:59 18:59 Intake Total 1200 580 Balance 1200 580 Weight 190.509 kg Intake: Intake, IV Titration 100 Amount Clindamycin 900 mg In 50 Dextrose 5% in Water 50 ml @ 100 mls/hr IVPB Q8HR [facility] Rx#:[id number] ceFAZolin 3 gm In Sodium 50 Chloride 0.9% 50 ml @ 100 mls/hr IVPB Q8HR [facility] Rx# :[id number] Oral 1200 480 Other: Voiding Method Toilet # Voids 4 3 - Exam PHYSICAL EXAMINATION: GENERAL: The patient is alert and oriented x3, not in any acute distress. Morbidly obese HEENT: Pupils are round and equally reacting to light. EOMI. No scleral icterus. No conjunctival pallor. Normocephalic, atraumatic. No pharyngeal erythema. No thyromegaly. CARDIOVASCULAR: S1 and S2 present. No murmurs, rubs, or gallops. PULMONARY: Chest is clear to auscultation, no wheezing or crackles. ABDOMEN: Soft, nontender, nondistended, normoactive bowel sounds. No palpable organomegaly. MUSCULOSKELETAL: No joint swelling or deformity. EXTREMITIES: No cyanosis, clubbing, or pedal edema. NEUROLOGICAL: Gross neurological examination did not reveal any focal deficits. Genitourinary: Did not examine and patient was already examined by ARCHITECTURE PROFESSOR services SKIN: No rashes. - Labs CBC & Chem 7: 07/16/17 06:44 07/16/17 06:44 Labs: Abnormal Lab Results - Last 24 Hours (Table) 07/15/17 07/15/17 07/16/17 Range/Units 17:00 20:06 06:44 WBC 12.0 H (3.8-10.6) k/uL MCV 78.1 L (80.0-100.0) fL MCH 24.3 L (25.0-35.0) pg Neutrophils # 9.5 H (1.3-7.7) k/uL Glucose (74-99) mg/dL POC Glucose (mg/dL) 249 H 243 H (75-99) mg/dL 07/16/17 07/16/17 07/16/17 Range/Units 06:44 07:17 11:36 WBC (3.8-10.6) k/uL MCV (80.0-100.0) fL MCH (25.0-35.0) pg Neutrophils # (1.3-7.7) k/uL Glucose 209 H (74-99) mg/dL POC Glucose (mg/dL) 209 H 205 H (75-99) mg/dL Microbiology - Last 24 Hours (Table) 07/14/17 07:19 Anaerobic Culture - Preliminary Groin Yeast species 07/13/17 18:00 Urine Culture - Final Urine,Clean Catch Carol albicans 07/13/17 12:40 Blood Culture - Preliminary Blood No Growth after 48 hours 07/14/17 07:19 Gram Stain - Final Groin Wound Culture - Final Strep agalactiae - (group b) Assessment and Plan Plan: -Bartholin's abscess: With spontaneous drainage patient is presently on ceftezole and for streptococci in the wound cultures and with the patient is also on clindamycin -Type 2 diabetes mellitus: Continue with present regimen monitor blood sugars titrate accordingly -Hypothyroidism -Morbid obesity
[2017-07-16 16:49] LABS: Glucose,Whole Blood 202 mg/dL (75-99)
--- NOTE | 2017-07-16 18:05 | PN ---
PROGRESS NOTE DATE OF SERVICE: 07/16/2017. REASON FOR FOLLOWUP: Left labial and groin abscess, group B strep. INTERVAL HISTORY: The patient is currently afebrile. The patient did mention did have overall improvement to her left labial area. Denies having any chest pain, shortness of breath, abdominal pain, or diarrhea. PHYSICAL EXAMINATION: Blood pressure 127/71, pulse of 94, temperature 98.1, she is 95% on room air. GENERAL DESCRIPTION: A middle-aged female lying in bed in no distress. SKIN: Groin examination, no swelling, no tenderness. Examination of the left labial area in the presence of the RN, still has significant induration with wound, some purulent drainage but not as tender to touch as previously. No foul-smelling drainage. LABS: Hemoglobin 11.5, BUN of 15, creatinine 0.74. Wound culture group B strep. DIAGNOSTIC IMPRESSION AND PLAN: Patient with group B strep left labial abscess. In view of the significant inflammation and infection she still has significant induration. Concern for possible failing oral antibiotic in the outpatient setting. We will get a Midline for outpatient cefazolin 3 g every 8 hours versus Rocephin 2 g daily depending upon insurance coverage. Continue supportive care. MMODL / IJN: [id number] / KAVIN
[2017-07-16] MEDS: INSULIN DETEMIR 100 UNIT/ML 10 ML VIAL SQ SCH (20:40)
[2017-07-16] MEDS: LOSARTAN 25 MG TAB PO SCH (20:40)
[2017-07-16] MEDS: ATORVASTATIN 10 MG TAB PO SCH (20:40)
[2017-07-16 20:45] LABS: Glucose,Whole Blood 211 mg/dL (75-99)
[2017-07-17] MEDS: LEVOTHYROXINE 100 MCG TAB PO SCH (05:15)
[2017-07-17] MEDS: CLINDAMYCIN 900 MG in DEXTROSE 5% IN WATER 50 ML IVPB SCH ×4 (05:16→14:04)
[2017-07-17 07:01] LABS: Glucose,Whole Blood 201 mg/dL (75-99)
[2017-07-17] MEDS: INSULIN ASPART 100 UNIT/ML 1 ML 10 ML VIAL SQ SCH ×4 (07:35→12:44)
[2017-07-17] MEDS: metFORMIN 500 MG TAB PO SCH (07:57)
[2017-07-17 08:07] LABS: Basophils % (A) 0 %; Eosinophils # (A) 0.3 k/uL (0-0.7); Eosinophils % (A) 2 %; HCT 39.2 % (34.0-46.0); Hypochromasia Slight; Lymphocytes % (A) 16 %; MCH 23.7 pg (25.0-35.0); MCHC 30.8 g/dL (31.0-37.0); MCV 77.1 fL (80.0-100.0); Mean Platelet Volume 8.5; Microcytosis Slight; Monocytes # (A) 0.7 k/uL (0-1.0); Monocytes % (A) 6 %; Neutrophils # (A) 8.8 k/uL (1.3-7.7); Neutrophils % (A) 74 %; Platelet Count 318 k/uL (150-450); RBC 5.08 m/uL (3.80-5.40); RDW 15.4 % (11.5-15.5); WBC 11.9 k/uL (3.8-10.6)
[2017-07-17 08:41] LABS: Anion Gap 15 mmol/L; Calcium 8.8 mg/dL (8.4-10.2); Carbon Dioxide 22 mmol/L (22-30); Chloride 103 mmol/L (98-107); Glucose 180 mg/dL (74-99); Sodium 140 mmol/L (137-145)
[2017-07-17 08:49] LABS: Blood Urea Nitrogen 18 mg/dL (7-17); Potassium 4.6 mmol/L (3.5-5.1)
[2017-07-17 09:08] VITALS: PULSE 87
[2017-07-17] MEDS: HEPARIN SODIUM,PORCINE 5,000 UNIT/ML 1 ML VIAL SQ SCH (10:15)
[2017-07-17 11:14] LABS: Glucose,Whole Blood 236 mg/dL (75-99)
--- NOTE | 2017-07-17 13:36 | PN ---
PROGRESS NOTE DATE OF SERVICE: 07/17/2017 REASON FOR FOLLOWUP: Left labial and groin area abscess and cellulitis. INTERVAL HISTORY: The patient is afebrile. The patient says Left groin pain and swelling has improved. She still has some drainage. Denies having any chest pain, shortness of breath or cough. No abdominal pain. No diarrhea. PHYSICAL EXAMINATION: On examination, blood pressure is 124/77 with a pulse of 87, temperature 98.4. She is 97% on room air. General description is a middle-aged female lying in bed in no distress. RESPIRATORY SYSTEM: Unlabored breathing, clear to auscultation anteriorly. HEART: S1, S2. Regular rate and rhythm. ABDOMEN: Soft, no tenderness. Left labial area still has some induration. Minimal drainage was noticed. Not as tender to touch. LABS: White count noted to be 11.9 with a BUN of 18, creatinine 0.76. DIAGNOSTIC IMPRESSION AND PLAN: Patient did have Streptococcus agalactiae left groin and labial area and cellulitis, currently on clindamycin and cefazolin in view of extensive infection, She did get a Midline and will be continued on cefazolin 3 g q.8 for total of 2 weeks with close outpatient followup. Patient instructed if any worsening pain, swelling, or fever after she goes home to let us know right away. MMODL / IJN: [id number] / MTDD
[2017-07-17 15:17] VITALS: BP 110/69; RESP 18; TEMP 98.3
--- NOTE | 2017-07-17 17:16 | P.DS ---
Providers Date of admission: 07/13/17 14:35 Attending physician: Stephane Ramsey Consults: 07/13/17 16:44 Consult Physician Routine Consulting Provider: Phoebe Haywood Consult Reason/Comments: Bartholin's Gland Abscess Do you want consulting provider notified?: Already Contacted 07/14/17 10:40 Consult Physician Routine Consulting Provider: Rosibel Penaloza Consult Reason/Comments: abscess Do you want consulting provider notified?: Yes Primary care physician: [facility] Hospital Course: 30-year-old female admitted with the Bartholin's cyst patient is spontaneously draining and patient was a valid by gynecology and infectious disease service. Wound cultures are growing streptococci patient and ceftezole in as well as clindamycin. 07/16/2017 Patient is clinically doing much better, infectious disease is recommending one more day of hospitalization IV antibiotics and patient may need a PICC line and oriented antibiotics as an outpatient considering her really bad Bartholin's abscess 07/17/2017 Patient is clinically doing well will be discharged on ceftezole in for streptococci patient won't cultures today are showing gram-negative to anaerobes as well because of which the patient will be discharged on metronidazole for 2 weeks as well. Patient will follow with Dr. Timmons as an outpatient. And gynecology as an outpatient. PHYSICAL EXAMINATION: GENERAL: The patient is alert and oriented x3, not in any acute distress. Morbidly obese HEENT: Pupils are round and equally reacting to light. EOMI. No scleral icterus. No conjunctival pallor. Normocephalic, atraumatic. No pharyngeal erythema. No thyromegaly. CARDIOVASCULAR: S1 and S2 present. No murmurs, rubs, or gallops. PULMONARY: Chest is clear to auscultation, no wheezing or crackles. ABDOMEN: Soft, nontender, nondistended, normoactive bowel sounds. No palpable organomegaly. MUSCULOSKELETAL: No joint swelling or deformity. EXTREMITIES: No cyanosis, clubbing, or pedal edema. NEUROLOGICAL: Gross neurological examination did not reveal any focal deficits. Genitourinary: Did not examine and patient was already examined by OCCUPATIONAL THER services SKIN: No rashes. Assessment and Plan Plan: -Bartholin's abscess: -Type 2 diabetes mellitus: -Hypothyroidism -Morbid obesity Plan - Discharge Summary Discharge Rx Participant: Yes New Discharge Prescriptions: New ceFAZolin [Kefzol] 2 gm IVP Q8HR #42 bag Insulin Glargine [Lantus] 30 unit SQ DAILY #1 vial INSULIN LISPRO (HumaLOG) [HumaLOG] 8 units SQ ACHS #1 vial metroNIDAZOLE [Flagyl] 500 mg PO TID #48 tab Continue metFORMIN HCL 1,000 mg PO BID Atorvastatin [Lipitor] 10 mg PO HS Losartan [Cozaar] 25 mg PO HS Levothyroxine Sodium [Synthroid] 200 mcg PO DAILY Discharge Medication List Atorvastatin [Lipitor] 10 mg PO HS 07/13/17 [History] Levothyroxine Sodium [Synthroid] 200 mcg PO DAILY 07/13/17 [History] Losartan [Cozaar] 25 mg PO HS 07/13/17 [History] metFORMIN HCL 1,000 mg PO BID 07/13/17 [History] ceFAZolin [Kefzol] 2 gm IVP Q8HR #42 bag 07/16/17 [Rx] INSULIN LISPRO (HumaLOG) [HumaLOG] 8 units SQ ACHS #1 vial 07/17/17 [Rx] Insulin Glargine [Lantus] 30 unit SQ DAILY #1 vial 07/17/17 [Rx] metroNIDAZOLE [Flagyl] 500 mg PO TID #48 tab 07/17/17 [Rx] Follow up Appointment(s)/Referral(s): [facility], [NON-STAFF] - Irma Harp MD [Primary Care Provider] - 1-2 days [facility], [REFERRING] - Rosibel Penaloza MD [STAFF PHYSICIAN] - 1 Week Patient Instructions/Handouts: Cellulitis (DC), Abscess (GEN), Bartholin Cyst ( GEN) Discharge Disposition: HOME WITH HOME HEALTH SERVICES
== END 2017-07-17 16:30 | disposition home health service (06) | DRG 758 ==
LOC: EC 11:13 → 3SUR 14:35
PROVIDERS: ADMIT Hospitalist; ATTEND Hospitalist
PROC: 05H833Z Insertion of Infusion Device into Left Axillary Vein, Percutaneous Approach (ICD-10-PCS; principal; 2017-07-17 09:00)
DX: N75.1 Abscess of Bartholin's gland (principal); L03.315 Cellulitis of perineum; Z68.44 Body mass index [BMI] 60.0-69.9, adult; L02.214 Cutaneous abscess of groin; E11.65 Type 2 diabetes mellitus with hyperglycemia; N76.4 Abscess of vulva; E66.01 Morbid (severe) obesity due to excess calories; B95.1 Streptococcus, group B, as the cause of diseases classified elsewhere; N75.0 Cyst of Bartholin's gland; E03.9 Hypothyroidism, unspecified; Z79.84 Long term (current) use of oral hypoglycemic drugs; Z79.899 Other long term (current) drug therapy; Z85.42 Personal history of malignant neoplasm of other parts of uterus; Z90.710 Acquired absence of both cervix and uterus; Z87.891 Personal history of nicotine dependence; Z90.722 Acquired absence of ovaries, bilateral; Z90.79 Acquired absence of other genital organ(s); Z80.49 Family history of malignant neoplasm of other genital organs; Z83.3 Family history of diabetes mellitus; Z82.49 Family history of ischemic heart disease and other diseases of the circulatory system
CPT/HCPCS: 0; 36415; 36569; 72193; 76937; 80048; 80053; 81001; 83036; 83605; 85025; 87040; 87070; 87075; 87086; 87205; 96365; 96366; 96375; 99284

== ENCOUNTER → 2018-07-29 | Outpatient (CLI) | payer MEDICARE, OTHER ==
--- NOTE | 2018-07-29 10:27 | P.HPBAR ---
Bariatric H&P - History & Physicial H&P Date: 07/29/18 History & Physicial: Visit/CC: Patient initial contact: Initial weight: Initial weight in pounds: Height: Initial BMI: Last weight: Current weight: Current weight in pounds: Current BMI: [place] body weight (based on NIH guidelines): Excess body weight loss: The patient is a 37 year-old F who presents for Bariatric Assessment. HPI: She presents for a gastric bypass. She sees Dr. Solis. She is seeing Dr. Calloway. She is a diabetic since 2000. She had uterine cancer in 2009. She does not see a cancer doctor. She reports hemorrhaging in the past. She has past blood transfusions and had procedure done at [facility] with complete hysterectomy. She had 13 units. No stomach or esophageal cancer. She is unaware of her father's side. She has lower back pain, no hip pain, no knee, has ankle, no feet. She has hypertension. She has lower incision with much scar tissue. Highest weight of today. She has tried over the counter weight weight loss of 30 pounds with weight gain. Mother had gallbladder out including family. No food allergies. ABDOMEN: Soft ASSESSMENT: 1. Morbid obesity PLAN: 1. MBSC calculator 2. Labs 3. Hgb A1c of 12 to 8. 4. Re-check of labs 5. EGD described 6. US of gallbladder. Past Medical History Past Medical History: Cancer, Diabetes Mellitus, Thyroid Disorder Additional Past Medical History / Comment(s): uterine cancer 2009, morbid obesity History of Any Multi-Drug Resistant Organisms: None Reported Past Surgical History: Hysterectomy Past Anesthesia/Blood Transfusion Reactions: Blood Transfusion Reaction Additional Past Anesthesia/Blood Transfusion Reaction / Comm: previous multiple blood transfusions- has pink card she is to carry with her but does not have it at this time. Past Psychological History: No Psychological Hx Reported Smoking Status: Former smoker Past Alcohol Use History: Rare Past Drug Use History: None Reported - Past Family History Mother Family Medical History: Diabetes Mellitus Father Family Medical History: Congestive Heart Failure (CHF) Bariatric Checklist Checklist: Plan: Checklist: EGD: 1. Hiatal hernia: 2. H. Pylori: HgbA1c: Vitamin D: Smoking: Former smoker Primary care physician referral: Psychiatry clearance: Cardiology clearance: Sleep study: Diet journal: VTE risk score: VTE risk level: Rehab needs at discharge:
[2018-07-29 11:37] VITALS: BP 151/82; PULSE 101; TEMP 98.1; BMI 65.9
== END | disposition home or self-care (01) ==
LOC: BARWHC3 09:22
PROVIDERS: ATTEND Surgery Plastic and Reconstructive Surgery
DX: E66.01 Morbid (severe) obesity due to excess calories (principal); M54.5 Low back pain; I10 Essential (primary) hypertension; E11.9 Type 2 diabetes mellitus without complications; Z85.42 Personal history of malignant neoplasm of other parts of uterus; Z90.710 Acquired absence of both cervix and uterus; Z87.891 Personal history of nicotine dependence; Z68.44 Body mass index [BMI] 60.0-69.9, adult
CPT/HCPCS: 99211

== ENCOUNTER → 2018-09-13 | Day surgery (SDC) | payer MEDICARE, OTHER ==
[2018-09-09 10:44] VITALS: BMI 65.9
[~2018-09-13] MED LIST: LACTATED RINGERS 1,000 ML IV SCH; LIDOCAINE 1% 20 ML VIAL (10MG/ML) FOR IV START INTRADERMA PRN; LIDOCAINE 1% INJ 10MG/ML (20 ML MDV) ONE; PROPOFOL 10 MG/ML 20 ML VIAL IV ONE
--- NOTE | 2018-09-13 07:05 | P.GSHP ---
History of Present Illness H&P Date: 09/13/18 CHIEF COMPLAINT: GERD HISTORY OF PRESENT ILLNESS: The patient is a 38-year-old female who presents reports gastroesophageal reflux disease. Upper endoscopy was offered for further evaluation and management. PAST MEDICAL HISTORY: Please see list. PAST SURGICAL HISTORY: Please see list. MEDICATIONS: Please see list. ALLERGIES: Please see list. SOCIAL HISTORY: No illicit drug use FAMILY HISTORY: No reports of Crohn disease or ulcerative colitis. REVIEW OF ORGAN SYSTEMS: CONSTITUTIONAL: No reports of fevers or chills. GI: Denies any blood in stools or constipation. PHYSICAL EXAM: VITAL SIGNS: Stable GENERAL: Well-developed and pleasant in no acute distress. HEENT: No scleral icterus. Extraocular movements grossly intact. Moist buccal mucosa. NECK: Supple without lymphadenopathy. CHEST: Unlabored respirations. Equal bilateral excursions. CARDIOVASCULAR: Regular rate and rhythm. Distal 2+ pulses. ABDOMEN: Soft, nondistended. MUSCULOSKELETAL: No clubbing, cyanosis, or edema. ASSESSMENT: 1. Gastroesophageal reflux disease PLAN: 1. Recommend proceeding with an upper endoscopy Past Medical History Past Medical History: Cancer, Diabetes Mellitus, Hypertension, Sleep Apnea/CPAP/BIPAP, Thyroid Disorder Additional Past Medical History / Comment(s): uterine cancer 2009 (led to complete hysterectomy), possible fatty liver, or gallbladder issues, sleep apnea but does not have cpap History of Any Multi-Drug Resistant Organisms: None Reported Past Surgical History: Hysterectomy Additional Past Surgical History / Comment(s): Complete hysterectomy (vertical incision that required wound care x 1 full year). Past Anesthesia/Blood Transfusion Reactions: Blood Transfusion Reaction Additional Past Anesthesia/Blood Transfusion Reaction / Comment(s): previous multiple blood transfusions- has pink card she is to carry with her but does not have it at this time. Smoking Status: Former smoker - Past Family History Mother Family Medical History: Diabetes Mellitus Additional Family Medical History / Comment(s): Lupus, sarcoidosis of lungs, multiple bilateral hip/knee surgeries Father Family Medical History: Congestive Heart Failure (CHF) Additional Family Medical History / Comment(s): Pt states she does not know much of her father's hx with the exception of he did have problems with substance abuse, had CHF, and in his late 50's/early 60's Sister(s) Family Medical History: Hyperlipidemia, Hypertension Brother(s) Additional Family Medical History / Comment(s): Brother #1: fatty liver (may be secondary to diet and ETOH). Brother #2: (Drug overdose) Medications and Allergies Home Medications Medication Instructions Recorded Confirmed Type Atorvastatin [Lipitor] 10 mg PO HS 07/13/17 09/09/18 History Levothyroxine Sodium [Synthroid] 25 mcg PO DAILY 07/13/17 09/09/18 History Losartan [Cozaar] 50 mg PO HS 07/13/17 09/09/18 History metFORMIN HCL 1,000 mg PO BID 07/13/17 09/09/18 History Glimepiride [Amaryl] 1 mg PO DAILY 07/29/18 09/09/18 History Insulin Glargine [Lantus] 25 unit SQ BID 07/29/18 09/09/18 History Actos 1 tab PO DAILY 09/09/18 09/09/18 History INSULIN LISPRO (HumaLOG) [HumaLOG] 0 units SQ ACHS 09/09/18 09/09/18 History Allergies Allergy/AdvReac Type Severity Reaction Status Date / Time adhesive tape Allergy Rash/Hives Verified 09/09/18 10:33
[2018-09-13 07:21] VITALS: RESP 16; TEMP 96.7
[2018-09-13 07:24] LABS: Glucose,Whole Blood 165 mg/dL (75-99)
--- NOTE | 2018-09-13 07:53 | P.PCN ---
Date of Procedure: 09/13/18 Description of Procedure: PREOPERATIVE DIAGNOSIS: Gastroesophageal reflux disease. Morbid obesity, BMI 65.9 POSTOPERATIVE DIAGNOSIS: Gastroesophageal reflux disease. Diaphragmatic hiatal hernia Morbid obesity, BMI 65.9 Gastritis. OPERATION: Esophagogastroduodenoscopy with biopsies along antrum. SURGEON: Phoebe Winter MD ANESTHESIA: MAC. INDICATIONS: The patient is a 38-year-old female who presents with a history of reflux disease. Benefits and risks of the procedure were described. Informed consent was obtained. DESCRIPTION: The patient was brought into the endoscopy suite and laid in the left lateral decubitus position. An Olympus gastroscope was passed along the posterior oropharynx down to the distal esophagus where the squamocolumnar junction was encountered at 40 cm from the incisors. The stomach was entered and no bile reflux was found. Additional findings are listed below. Biopsies with cold forceps were obtained of the antrum. The first through third portion of the duodenum was examined and unremarkable. Retroflexion of the scope confirmed Hill grade 3 lower esophageal valve. The squamocolumnar junction demonstrated LA grade A erosive esophagitis. The stomach was desufflated. The patient tolerated the procedure well. FINDINGS: Squamocolumnar junction 40 cm from the incisors. Diaphragmatic hiatus at 41 cm. Hiatal hernia, 1 cm Hill grade 3 lower esophageal valve. LA grade A erosive esophagitis. No active duodenitis. Chronic gastritis RECOMMENDATIONS: Upper endoscopy as needed. Plan - Discharge Summary Discharge Rx Participant: No New Discharge Prescriptions: No Action metFORMIN HCL 1,000 mg PO BID Atorvastatin [Lipitor] 10 mg PO HS Losartan [Cozaar] 50 mg PO HS Levothyroxine Sodium [Synthroid] 25 mcg PO DAILY Glimepiride [Amaryl] 1 mg PO DAILY Insulin Glargine [Lantus] 25 unit SQ BID INSULIN LISPRO (HumaLOG) [HumaLOG] 0 units SQ ACHS Actos 1 tab PO DAILY Discharge Medication List Atorvastatin [Lipitor] 10 mg PO HS 07/13/17 [History] Levothyroxine Sodium [Synthroid] 25 mcg PO DAILY 07/13/17 [History] Losartan [Cozaar] 50 mg PO HS 07/13/17 [History] metFORMIN HCL 1,000 mg PO BID 07/13/17 [History] Glimepiride [Amaryl] 1 mg PO DAILY 07/29/18 [History] Insulin Glargine [Lantus] 25 unit SQ BID 07/29/18 [History] Actos 1 tab PO DAILY 09/09/18 [History] INSULIN LISPRO (HumaLOG) [HumaLOG] 0 units SQ ACHS 09/09/18 [History] Follow up Appointment(s)/Referral(s): [facility] [NON-STAFF] - 09/29/18 Patient Instructions/Handouts: Hiatal Hernia (DC) Discharge Disposition: HOME SELF-CARE
[2018-09-13 08:10] VITALS: BP 137/80; PULSE 96
[2018-09-13 08:10] LABS: Glucose,Whole Blood 181 mg/dL (75-99)
== END | disposition home or self-care (01) ==
LOC: ORWHC2ENDO 06:27
PROVIDERS: ATTEND Surgery Plastic and Reconstructive Surgery
DX: K29.50 Unspecified chronic gastritis without bleeding (principal); K21.9 Gastro-esophageal reflux disease without esophagitis; K44.9 Diaphragmatic hernia without obstruction or gangrene; K22.10 Ulcer of esophagus without bleeding; G47.33 Obstructive sleep apnea (adult) (pediatric); E78.5 Hyperlipidemia, unspecified; E66.01 Morbid (severe) obesity due to excess calories; E11.9 Type 2 diabetes mellitus without complications; I10 Essential (primary) hypertension; E07.9 Disorder of thyroid, unspecified; Z85.42 Personal history of malignant neoplasm of other parts of uterus; Z87.891 Personal history of nicotine dependence; Z79.4 Long term (current) use of insulin; Z83.3 Family history of diabetes mellitus; Z82.49 Family history of ischemic heart disease and other diseases of the circulatory system; Z79.890 Hormone replacement therapy; Z79.899 Other long term (current) drug therapy; Z68.44 Body mass index [BMI] 60.0-69.9, adult; Z99.89 Dependence on other enabling machines and devices; Z90.710 Acquired absence of both cervix and uterus; Z91.048 Other nonmedicinal substance allergy status
CPT/HCPCS: 43239; J2001; J2704; 88305

== ENCOUNTER → 2018-09-14 | Outpatient (CLI) | payer MEDICARE, OTHER ==
[2018-09-14 09:23] LABS: Anisocytosis Slight; HCT 40.3 % (34.0-46.0); HGB 12.4 gm/dL (11.4-16.0); Hypochromasia Slight; MCH 22.9 pg (25.0-35.0); MCHC 30.7 g/dL (31.0-37.0); MCV 74.8 fL (80.0-100.0); Mean Platelet Volume 7.4; Microcytosis Slight; Platelet Count 353 k/uL (150-450); RDW 16.5 % (11.5-15.5); WBC 12.7 k/uL (3.8-10.6)
[2018-09-14 09:42] LABS: INR 0.9 (<1.2); Partial Thromboplastin Time 26.2 sec (22.0-30.0); Prothrombin Time 9.5 sec (9.0-12.0)
[2018-09-14 19:00] LABS: Hemoglobin A1C 9.3 % (4.0-6.0)
[2018-09-14 19:21] LABS: Iron Saturation 11.94 (12.00-45.00)
[2018-09-14 19:30] LABS: Ferritin 71.9 ng/mL (10.0-291.0); Folate, Serum 6.2 ng/mL; Vitamin D 25 Hydroxy 15.7 ng/mL (30.0-100.0)
[2018-09-14 19:38] LABS: Chol/HDL Ratio 4.71
[2018-09-14 19:39] LABS: African American GFR (CKD) 106.9 (60.0-200.0); Albumin 4.1 g/dL (3.80-4.90); Albumin/Globulin Ratio 1.86 (1.60-3.17); Anion Gap 12.9 mmol/L (4.00-12.00); BUN/Creat Ratio 18.75 Ratio (12.00-20.00); Calcium 9.1 mg/dL (8.7-10.3); Carbon Dioxide 22.1 mmol/L (21.6-31.8); Globulin 2.2 g/dL (1.6-3.3); Magnesium 1.8 mg/dL (1.5-2.4); Non-African American GFR(CKD) 92.2 (60.0-200.0); Phosphorus 3.9 mg/dL (2.4-5.1); Potassium 4.5 mmol/L (3.5-5.5); Total Bilirubin 0.3 mg/dL (0.3-1.2); Total Protein 6.3 g/dL (6.2-8.2)
[2018-09-15 12:56] LABS: Zinc, Serum 69 ug/dL (60-130)
[2018-09-15 14:36] LABS: Vitamin A 27 ug/dL (38-106)
[2018-09-16 06:11] LABS: Vit B1(Thiamine) 65 ug/L (38-122)
[2018-09-16 19:18] LABS: Selenium 107 mcg/L (63-160)
== END | disposition home or self-care (01) ==
LOC: LABWHC1 08:44
PROVIDERS: ATTEND Surgery Plastic and Reconstructive Surgery
DX: E21.1 Secondary hyperparathyroidism, not elsewhere classified (principal); D50.9 Iron deficiency anemia, unspecified; K90.9 Intestinal malabsorption, unspecified; K74.1 Hepatic sclerosis; K50.90 Crohn's disease, unspecified, without complications; R94.6 Abnormal results of thyroid function studies; E55.9 Vitamin D deficiency, unspecified; N19 Unspecified kidney failure
CPT/HCPCS: 36415; 80053; 80061; 82306; 82525; 82607; 82728; 82746; 83036; 83540; 83550; 83735; 83970; 84100; 84134; 84255; 84425; 84439; 84443; 84481; 84590; 84630; 85027; 85610; 85730; 93005

== ENCOUNTER → 2018-09-23 | Outpatient (CLI) | payer MEDICARE, OTHER ==
--- NOTE | 2018-09-23 08:32 | US ---
EXAMINATION TYPE: US abdomen complete DATE OF EXAM: 09/23/2018 COMPARISON: NONE CLINICAL HISTORY: R74.8 Abnormal levels of other serum enzymes. Intermittent abdomen pain and nausea x 1 month, gets worse after eating EXAM MEASUREMENTS: Liver Length: 22.6 cm Gallbladder Wall: 0.3 cm CBD: n/a Spleen: 11.4 cm Right Kidney: 10.8 x 5.2 x 4.6 cm Left Kidney: 12.3 x 5.7 x 4.5 cm Difficult and sub optimal study due to morbidly obese patient and overlying bowel gas Pancreas: obscured Liver: enlarged, visualized portions appear heterogeneous, attenuating, decreased visualization of v essels suggestive of fatty infiltration Gallbladder: visualized portions appear wnl Evidence for sonographic Blackwood's sign: no CBD: not visualized due to limitations listed above Spleen: visualized portions appear wnl Right Kidney: visualized portions appear wnl Left Kidney: visualized portions appear wnl Upper IVC: not visualized due to limitations listed above Abd Aorta: obscured The visualized liver is heterogeneously hyperechoic. Evaluation for focal masses is suboptimal due to the heterogeneity. Suboptimal visualization of IVC and aorta on images saved. There is no evidence of shadowing mobile cholelithiasis. Common bile duct is unremarkable. Suboptimal visualization of pa ncreas on images saved. The visualized spleen is unremarkable. Suboptimal evaluation of both kidneys without gross hydronephrosis or suspicious atrophy. IMPRESSION: Markedly suboptimal study due to patient's large body habitus and overlying bowel gas. No acute findings seen to account for patient's symptoms of pain and nausea. Consider CT evaluation if symptoms persist.
== END | disposition home or self-care (01) ==
LOC: RADUSWWP 07:35
PROVIDERS: ATTEND Family Medicine
DX: R74.8 Abnormal levels of other serum enzymes (principal)
CPT/HCPCS: 76700

== ENCOUNTER → 2018-09-29 | Outpatient (CLI) | payer MEDICARE, OTHER ==
[2018-09-29 16:15] VITALS: BMI 67.7
--- NOTE | 2018-09-29 20:40 | P.PN ---
Subjective Progress Note Date: 09/29/18 DATE OF SERVICE: 09/29/2018 CHIEF COMPLAINT: Morbid obesity HISTORY OF PRESENT ILLNESS: Tamy Hanna is a 38-year-old female who comes with lifelong morbid obesity. As a result of her morbid obesity, she has developed hypertension, insulin dependent diabetes, chronic fatigue and multiple joint problems. Her family is at bedside. She reports poorly controlled diabetes. In fact, she has multiple new medical issues including obstructive sleep apnea. She has completed an upper endoscopy. Her family and herself reports chronic fatigue. She is completing assessment for obstructive sleep apnea and is pending a machine. She is looking into a gastric bypass. At height of 5 feet 8.5 inches, her ideal body weight is 163 pounds. She comes in 451 pounds from 439 pounds, 2 months ago. She has gained 12 pounds in 2 months. Her body mass index is 67.7. She is 288 pounds overweight. PAST MEDICAL HISTORY: 1. Morbid obesity due to excess calories 2. Body mass index up to 67.7 3. Osteoarthritis of the ankles 4. Osteoarthritis of the lower back. 5. Hypertensive heart disease 6. Diabetes type II, insulin dependent 7. Uterine cancer 8. Hypothyroidism 9. Fatty liver disease PAST SURGICAL HISTORY: 1. Hysterectomy HOME MEDICATIONS: ALLERGIES: Home Medications Medication Instructions Recorded Confirmed Atorvastatin [Lipitor] 10 mg PO HS 07/13/17 10/13/18 Levothyroxine Sodium [Synthroid] 25 mcg PO DAILY 07/13/17 10/13/18 Losartan [Cozaar] 50 mg PO HS 07/13/17 10/13/18 metFORMIN HCL 1,000 mg PO BID 07/13/17 10/13/18 Glimepiride [Amaryl] 1 mg PO DAILY 07/29/18 10/13/18 Insulin Glargine [Lantus] 25 unit SQ BID 07/29/18 10/13/18 Actos 1 tab PO DAILY 09/09/18 10/13/18 INSULIN LISPRO (HumaLOG) [HumaLOG] 0 units SQ ACHS 09/09/18 10/13/18 Previous Rx's Medication Instructions Recorded Ergocalciferol [Vitamin D2 50,000 unit PO Q7D #12 cap 09/29/18 (DRISDOL)] Levothyroxine Sodium [Synthroid] 50 mcg PO DAILY #30 tab 09/29/18 Vitamin A 8,000 unit PO DAILY #30 capsule 09/29/18 SOCIAL HISTORY: Past tobacco use. FAMILY HISTORY: No family history of ulcerative colitis disease or Crohn's disease. Family history of morbid obesity. Has lupus in the family. No reports of stomach or esophageal cancer. REVIEW OF ORGAN SYSTEMS: CONSTITUTIONAL: At height of 5 feet 8.5 inches, her ideal body weight is 163 pounds. She comes in 451 pounds from 439 pounds, 2 months ago. She has gained 12 pounds in 2 months. Her body mass index is 67.7. She is 288 pounds overweight. HEENT: Denies any active troubles with vision or hearing. ENDOCRINE: Has diabetes. Has hypothyroidism. CARDIOVASCULAR: No reports of palpitations or heart attacks or chest pain. RESPIRATORY: Has daytime somnolence. Has asthma. GASTROINTESTINAL: Denies any bright red blood per rectum. No diarrhea. No constipation. MUSCULOSKELETAL: Has lower back pain and joint pain. Has osteoarthritis of the knees. NEURO: No headaches. No seizure disorders. PSYCH: No depression. No suicidal ideation. RHEUMATOLOGIC: No lupus. No rheumatoid arthritis. HEMATOLOGIC: Denies any abnormal bleeding or bruising. No personal history of DVTs. SKIN: No rash. No skin cancer. PHYSICAL EXAM: VITAL SIGNS: Height 5 foot 8.5 inches, weight 451 pounds. BMI 67.7 GENERAL: Well-developed in no acute distress. HEENT: No scleral icterus. Extraocular movements grossly intact. Hears conversational speech. No nasal drainage. NECK: Supple without lymphadenopathy. CHEST: Nonlabored respirations with equal bilateral excursions. CARDIOVASCULAR: Tachycardic. Distal 2+ pulses. ABDOMEN: Obese, soft, nontender, nondistended. MUSCULOSKELETAL: No clubbing, cyanosis. Gross strength 5/5 distal lower extremities. NEURO: No focal or lateralizing signs. Cranial nerves 2 through 12 grossly within normal limits. PSYCH: Appropriate affect. Alert and oriented to person, place and time. SKIN: Good skin turgor. Well perfused. LABS: Hemoglobin A1c elevated at 9.3%, iron significantly low with iron deficiency anemia, vitamin A low, vitamin D low, TSH moderately elevated over 7, total protein low STUDIES: Upper endoscopy report reviewed without any significant hiatal hernias. H. pylori unremarkable. EGD FINDINGS: Squamocolumnar junction 40 cm from the incisors. Diaphragmatic hiatus at 41 cm. Hiatal hernia, 1 cm Hill grade 3 lower esophageal valve. LA grade A erosive esophagitis. No active duodenitis. Chronic gastritis Final Pathologic Diagnosis GASTRIC ANTRUM, BIOPSY: Mild chronic gastritis. Helicobacter organisms are not identified on routine H+E stained sections. EKG: Normal sinus rhythm ASSESSMENT: 1. Morbid obesity due to excess calories 2. Body mass index of 67.7 3. Osteoarthritis of the ankles 4. Osteoarthritis of the lower back 5. Hypertensive heart disease 6. Diabetes type II, insulin dependent, uncontrolled 7. History of uterine cancer 8. Hypothyroidism, uncontrolled 9. Fatty liver disease 10. Vitamin A deficiency 11. Vitamin D deficiency 12. Iron deficiency anemia 13. Hyperglycemia 14. Obstructive sleep apnea, new 15. Vitamin A deficiency 16. Vitamin D deficiency PLAN: 1. I have gone over ideal dose of Synthroid for which she is subtherapeutic. Synthroid elevated from 25-50 g daily. 2. Vitamin A and vitamin D prescription written. 3. Will need iron infusion for severe iron deficiency anemia and she is symptomatic. 4. Will need adjustment of current diabetic medications where current blood sugars are 250. Goal is blood sugars of 150 under. Hemoglobin A1c must be improved to under 9, preferably under 8 to decrease risks for perioperative complications. 5. At this time, she is pursuing gastric bypass 6. Recommend follow-up in 1 month for recheck of iron, vitamin levels, thyroid levels Objective - Vital Signs Vital signs: Intake & Output 09/29/18 09/29/18 09/30/18 06:59 18:59 06:59 Weight 205.024 kg
== END ==
LOC: BARWHC3 14:29
PROVIDERS: ATTEND Surgery Plastic and Reconstructive Surgery
DX: E66.01 Morbid (severe) obesity due to excess calories (principal); G47.33 Obstructive sleep apnea (adult) (pediatric); E03.9 Hypothyroidism, unspecified; E50.9 Vitamin A deficiency, unspecified; E55.9 Vitamin D deficiency, unspecified
CPT/HCPCS: 99211

== ENCOUNTER → 2018-10-04 | Outpatient (CLI) | payer MEDICARE ==
[2018-10-04 12:07] VITALS: BMI 67.2
== END | disposition home or self-care (01) ==
LOC: BARWHC3 08:38
PROVIDERS: ATTEND Surgery Plastic and Reconstructive Surgery
DX: E66.01 Morbid (severe) obesity due to excess calories (principal); Z68.44 Body mass index [BMI] 60.0-69.9, adult
CPT/HCPCS: 97804

== ENCOUNTER → 2018-11-17 | Outpatient (CLI) | payer MEDICARE ==
[2018-11-17 10:25] LABS: ALT 30 U/L (9-52); AST 25 U/L (14-36); African American GFR (CKD) >90 (>60 ml/min/1.73 sqM); Albumin 4.2 g/dL (3.5-5.0); Alkaline Phosphatase 142 U/L (38-126); Anion Gap 12 mmol/L; Blood Urea Nitrogen 17 mg/dL (7-17); Calcium 9.6 mg/dL (8.4-10.2); Carbon Dioxide 22 mmol/L (22-30); Chloride 106 mmol/L (98-107); Glucose 99 mg/dL (74-99); Potassium 4.4 mmol/L (3.5-5.1); Sodium 140 mmol/L (137-145); Total Bilirubin 0.4 mg/dL (0.2-1.3); Total Protein 7.4 g/dL (6.3-8.2)
[2018-11-17 10:29] LABS: Anisocytosis Slight; Basophils # (A) 0.1 k/uL (0-0.2); Basophils % (A) 1 %; Eosinophils # (A) 0.1 k/uL (0-0.7); Eosinophils % (A) 2 %; HGB 13.4 gm/dL (11.4-16.0); Hypochromasia Slight; Lymphocytes # (A) 1.9 k/uL (1.0-4.8); Lymphocytes % (A) 19 %; MCH 25.5 pg (25.0-35.0); MCHC 31.8 g/dL (31.0-37.0); Mean Platelet Volume 7.3; Microcytosis Slight; Monocytes # (A) 0.5 k/uL (0-1.0); Monocytes % (A) 5 %; Neutrophils # (A) 6.9 k/uL (1.3-7.7); Neutrophils % (A) 73 %; Platelet Count 322 k/uL (150-450); RBC 5.23 m/uL (3.80-5.40); RDW 17.6 % (11.5-15.5); WBC 9.5 k/uL (3.8-10.6)
[2018-11-17 10:31] LABS: MCV 80.3 fL (80.0-100.0)
== END | disposition home or self-care (01) ==
LOC: LABPAT 09:19
PROVIDERS: ATTEND Surgery Plastic and Reconstructive Surgery
DX: Z01.812 Encounter for preprocedural laboratory examination (principal)
CPT/HCPCS: 36415; 80053; 85025

== ENCOUNTER 2018-11-22 10:28 | Inpatient (IN) | payer MEDICARE, OTHER ==
--- NOTE | 2018-11-22 08:32 | P.GSHP ---
History of Present Illness H&P Date: 11/22/18 DATE OF SERVICE: 11/22/2018 CHIEF COMPLAINT: Morbid obesity HISTORY OF PRESENT ILLNESS: Tamy Hanna is a 38-year-old female who comes with lifelong morbid obesity. As a result of her morbid obesity, she has developed hypertension, insulin dependent diabetes, chronic fatigue and multiple joint problems. Her family is at bedside. She reports poorly controlled diabetes. In fact, she has multiple new medical issues including obstructive sleep apnea. She has completed an upper endoscopy. Her family and herself reports chronic fatigue. She is completing assessment for obstructive sleep apnea and is pending a machine. She is looking into a gastric bypass. At height of 5 feet 8.5 inches, her ideal body weight is 163 pounds. She comes in 451 pounds from 439 pounds, 2 months ago. She has gained 12 pounds in 2 months. Her body mass index is 67.7. She is 288 pounds overweight. PAST MEDICAL HISTORY: 1. Morbid obesity due to excess calories 2. Body mass index up to 67.7 3. Osteoarthritis of the ankles 4. Osteoarthritis of the lower back. 5. Hypertensive heart disease 6. Diabetes type II, insulin dependent 7. Uterine cancer 8. Hypothyroidism 9. Fatty liver disease PAST SURGICAL HISTORY: 1. Hysterectomy HOME MEDICATIONS: ALLERGIES: Home Medications Medication Instructions Recorded Confirmed Atorvastatin [Lipitor] 10 mg PO HS 07/13/17 10/13/18 Levothyroxine Sodium [Synthroid] 25 mcg PO DAILY 07/13/17 10/13/18 Losartan [Cozaar] 50 mg PO HS 07/13/17 10/13/18 metFORMIN HCL 1,000 mg PO BID 07/13/17 10/13/18 Glimepiride [Amaryl] 1 mg PO DAILY 07/29/18 10/13/18 Insulin Glargine [Lantus] 25 unit SQ BID 07/29/18 10/13/18 Actos 1 tab PO DAILY 09/09/18 10/13/18 INSULIN LISPRO (HumaLOG) [HumaLOG] 0 units SQ ACHS 09/09/18 10/13/18 Previous Rx's Medication Instructions Recorded Ergocalciferol [Vitamin D2 50,000 unit PO Q7D #12 cap 09/29/18 (DRISDOL)] Levothyroxine Sodium [Synthroid] 50 mcg PO DAILY #30 tab 09/29/18 Vitamin A 8,000 unit PO DAILY #30 capsule 09/29/18 SOCIAL HISTORY: Past tobacco use. FAMILY HISTORY: No family history of ulcerative colitis disease or Crohn's disease. Family history of morbid obesity. Has lupus in the family. No reports of stomach or esophageal cancer. REVIEW OF ORGAN SYSTEMS: CONSTITUTIONAL: At height of 5 feet 8.5 inches, her ideal body weight is 163 pounds. She comes in 451 pounds from 439 pounds, 2 months ago. She has gained 12 pounds in 2 months. Her body mass index is 67.7. She is 288 pounds overweight. HEENT: Denies any active troubles with vision or hearing. ENDOCRINE: Has diabetes. Has hypothyroidism. CARDIOVASCULAR: No reports of palpitations or heart attacks or chest pain. RESPIRATORY: Has daytime somnolence. Has asthma. GASTROINTESTINAL: Denies any bright red blood per rectum. No diarrhea. No constipation. MUSCULOSKELETAL: Has lower back pain and joint pain. Has osteoarthritis of the knees. NEURO: No headaches. No seizure disorders. PSYCH: No depression. No suicidal ideation. RHEUMATOLOGIC: No lupus. No rheumatoid arthritis. HEMATOLOGIC: Denies any abnormal bleeding or bruising. No personal history of DVTs. SKIN: No rash. No skin cancer. PHYSICAL EXAM: VITAL SIGNS: Height 5 foot 8.5 inches, weight 451 pounds. BMI 67.7 GENERAL: Well-developed in no acute distress. HEENT: No scleral icterus. Extraocular movements grossly intact. Hears conversational speech. No nasal drainage. NECK: Supple without lymphadenopathy. CHEST: Nonlabored respirations with equal bilateral excursions. CARDIOVASCULAR: Tachycardic. Distal 2+ pulses. ABDOMEN: Obese, soft, nontender, nondistended. MUSCULOSKELETAL: No clubbing, cyanosis. Gross strength 5/5 distal lower extremities. NEURO: No focal or lateralizing signs. Cranial nerves 2 through 12 grossly within normal limits. PSYCH: Appropriate affect. Alert and oriented to person, place and time. SKIN: Good skin turgor. Well perfused. LABS: Hemoglobin A1c elevated at 9.3%, iron significantly low with iron deficiency anemia, vitamin A low, vitamin D low, TSH moderately elevated over 7, total protein low STUDIES: Upper endoscopy report reviewed without any significant hiatal hernias. H. pylori unremarkable. EGD FINDINGS: Squamocolumnar junction 40 cm from the incisors. Diaphragmatic hiatus at 41 cm. Hiatal hernia, 1 cm Hill grade 3 lower esophageal valve. LA grade A erosive esophagitis. No active duodenitis. Chronic gastritis Final Pathologic Diagnosis GASTRIC ANTRUM, BIOPSY: Mild chronic gastritis. Helicobacter organisms are not identified on routine H+E stained sections. EKG: Normal sinus rhythm ASSESSMENT: 1. Morbid obesity due to excess calories 2. Body mass index of 67.7 3. Osteoarthritis of the ankles 4. Osteoarthritis of the lower back 5. Hypertensive heart disease 6. Diabetes type II, insulin dependent, uncontrolled 7. History of uterine cancer 8. Hypothyroidism, uncontrolled 9. Fatty liver disease 10. Vitamin A deficiency 11. Vitamin D deficiency 12. Iron deficiency anemia 13. Hyperglycemia 14. Obstructive sleep apnea, new 15. Vitamin A deficiency 16. Vitamin D deficiency PLAN: 1. Bariatric options between a sleeve, band and a Rio-en-Y gastric bypass were reviewed in detail. The patient elected for a gastric bypass. Robotic assisted approach described. 2. The [place] [facility] Data was also reviewed with benefits and risks as described. 3. An 8 page second-generation bariatric consent form was reviewed in detail including potential of bleeding, infection, leaks, adequate weight loss, nutritional deficiencies which the patient demonstrated understanding of the risks. 4. A 2 week high-protein low caloric 800 kcal diet described to address hepatomegaly. 5. Preoperative labs including complete metabolic panel and CBC with type and screen recommended. 6. DVT prophylaxis per [place] [facility]. 7. Antibiotic prophylaxis. 8. Inpatient hospitalization anticipated for more than 2 nights. 9. All questions and concerns were addressed with the patient. Past Medical History Past Medical History: Cancer, Diabetes Mellitus, Hyperlipidemia, Hypertension, Osteoarthritis (OA), Sleep Apnea/CPAP/BIPAP, Thyroid Disorder Additional Past Medical History / Comment(s): hx. uterine cancer approx. 10 yrs. ago, morbid obesity, Type 2 DM, Hypothyroidism, possible fatty liver, uses CPAP History of Any Multi-Drug Resistant Organisms: None Reported Past Surgical History: Hysterectomy, Tonsillectomy Additional Past Surgical History / Comment(s): Complete hysterectomy (vertical incision that required wound care x 1 full year), EGD Past Anesthesia/Blood Transfusion Reactions: No Reported Reaction, Blood Transfusion Reaction Additional Past Anesthesia/Blood Transfusion Reaction / Comment(s): previous multiple blood transfusions- has card she carries that says she has anti-E in blood Smoking Status: Former smoker - Past Family History Mother Family Medical History: Diabetes Mellitus Additional Family Medical History / Comment(s): Lupus, sarcoidosis of lungs, multiple bilateral hip/knee surgeries Father Family Medical History: Congestive Heart Failure (CHF) Additional Family Medical History / Comment(s): Pt states she does not know much of her father's hx with the exception of he did have problems with substance abuse, had CHF, and in his late 50's/early 60's Sister(s) Family Medical History: Hyperlipidemia, Hypertension Brother(s) Additional Family Medical History / Comment(s): Brother #1: fatty liver (may be secondary to diet and ETOH). Brother #2: (Drug overdose) Medications and Allergies Home Medications Medication Instructions Recorded Confirmed Type Atorvastatin [Lipitor] 10 mg PO HS 07/13/17 11/15/18 History Losartan [Cozaar] 50 mg PO HS 07/13/17 11/15/18 History metFORMIN HCL 1,000 mg PO QAM 07/13/17 11/15/18 History Insulin Glargine [Lantus] 20 unit SQ BID 07/29/18 11/15/18 History INSULIN LISPRO (HumaLOG) [HumaLOG] See Protocol SQ ACHS 09/09/18 11/15/18 History Ergocalciferol [Vitamin D2 50,000 unit PO Q7D #12 cap 09/29/18 11/15/18 Rx (DRISDOL)] Levothyroxine Sodium [Synthroid] 50 mcg PO DAILY #30 tab 09/29/18 11/15/18 Rx Vitamin A 8,000 unit PO DAILY #30 capsule 09/29/18 11/15/18 Rx Allergies Allergy/AdvReac Type Severity Reaction Status Date / Time adhesive tape Allergy Rash/Hives Verified 11/15/18 14:56
[~2018-11-22 10:28] MED LIST changes: +CHLORHEXIDINE GLUCONATE 15 ML CUP MUCOUS MEM ONE; +DEXAMETHASONE SOD PHOSPHATE 10 MG/ML 1 ML VIAL IV ONE; +ENOXAPARIN 40 MG/0.4 ML SYRINGE SQ STA; -LACTATED RINGERS 1,000 ML IV SCH; -LIDOCAINE 1% INJ 10MG/ML (20 ML MDV) ONE; +MIDAZOLAM 2 MG/2 ML VIAL IV PRN; +PANTOPRAZOLE 40 MG/10 ML VIAL IV STA; -PROPOFOL 10 MG/ML 20 ML VIAL IV ONE; +ceFAZolin 3 GM in SODIUM CHLORIDE 0.9% 100 ML IVPB ONE; +fentaNYL (PF) 50 MCG/ML 2 ML AMP IV PRN
[2018-11-22] MEDS: LACTATED RINGERS 1,000 ML IV SCH (11:17)
[2018-11-22] MEDS ORDERED: ONDANSETRON 4 MG/2 ML VIAL IVP ONE (11:24)
[2018-11-22] MEDS ORDERED: MIDAZOLAM PF (FBP) 2 MG/2 ML VIAL IV ONE (11:32)
[2018-11-22] MEDS ORDERED: fentaNYL (PF) 50 MCG/ML 2 ML AMP IVP ONE (11:32)
[2018-11-22 11:48] LABS: Glucose,Whole Blood 123 mg/dL (75-99)
--- NOTE | 2018-11-22 12:24 | P.ANPRN ---
Procedure Note - Anesthesia - Nerve Block Performed Bilateral Transversus Abdominis Single Time Out Performed: Yes Date of Procedure: 11/22/18 Procedure Start Time: :31 Procedure Stop Time: :50 Location of Patient Procedure: PreOp Indication: Acute Post-Operative Pain, Requested by Surgeon ([email or web address]) Specifically requested for management of pain by : Phoebe Winter Sedation Type: Sedate with meaningful contact maintained Preparation: Sterile Prep Position: Supine Catheter: None Needle Types: Pajunk Needle Gauge: 20 Ultrasound used to visualize needle placement: Yes Ultrasound used to observe medication spread: Yes Injectate: Other (see comment) (Ropivacaine 0.25%/lidocaine 1% 30 mL per side) Adjunct: Epinephrine (see comment for dilution ratio) (1:200,000) Blood Aspirated: No Pain Paresthesia on Injection Noted: No Resistance on Injection: Normal Image Stored and Saved: Yes Events: Uneventful and Well Tolerated (Patient's habitus necessitated use of curvilinear low frequency probe at approximately 4 MHz.)
[2018-11-22] MEDS ORDERED: NEOSTIGMINE 1 MG/ML 10 ML VIAL ONE (13:03)
[2018-11-22] MEDS ORDERED: fentaNYL (PF) 50 MCG/ML 2 ML AMP ONE (13:03)
[2018-11-22] MEDS ORDERED: GLYCOPYRROLATE 0.2 MG/ML 2 ML VIAL ONE (13:03)
[2018-11-22] MEDS ORDERED: SUCCINYLCHOLINE CHLORIDE VIAL 200 MG/10 ML VIAL IV ONE (13:03)
[2018-11-22] MEDS ORDERED: INSULIN REGULAR 100 UNIT/ML VIAL ONE (13:03)
[2018-11-22] MEDS ORDERED: ROCURONIUM BROMIDE 10 MG/ML 10 ML VIAL IV ONE (13:03)
[2018-11-22] MEDS ORDERED: LIDOCAINE 1% INJ 10MG/ML (20 ML MDV) ONE (13:03)
[2018-11-22] MEDS ORDERED: LABETALOL 5 MG/ML VIAL MDV ONE (13:03)
[2018-11-22] MEDS ORDERED: ROPIVACAINE 5 MG/ML 30 ML VIAL ONE (13:03)
[2018-11-22] MEDS ORDERED: PROPOFOL 10 MG/ML 20 ML VIAL IV ONE (13:03)
[2018-11-22] MEDS ORDERED: ESMOLOL 100 MG/10 ML VIAL ONE (13:03)
[2018-11-22] MEDS ORDERED: LACTATED RINGERS 1,000 ML IV ONE ×6 (13:05→18:30)
[2018-11-22] MEDS ORDERED: LIDOCAINE 1%-EPI 1:100,000 30 ML VIAL SQ ONE ×3 (13:37→13:51)
[2018-11-22 13:45] LABS: Glucose,Whole Blood 172 mg/dL (75-99)
[2018-11-22 15:04] LABS: Glucose,Whole Blood 225 mg/dL (75-99)
[2018-11-22 16:27] LABS: Glucose,Whole Blood 240 mg/dL (75-99)
[2018-11-22] MEDS ORDERED: ONDANSETRON 4 MG/2 ML VIAL IVP PRN (17:05)
[2018-11-22] MEDS ORDERED: NALOXONE 0.4 MG/ML 1 ML VIAL IV PRN (17:05)
--- NOTE | 2018-11-22 17:22 | P.OP ---
Date of Procedure: 11/22/18 Description of Procedure: SURGEON: SUE VELASCO MD PREOPERATIVE DIAGNOSES: 1. Morbid obesity due to excess calories 2. Body mass index of 67.7, initial 3. Osteoarthritis of the ankles 4. Osteoarthritis of the lower back 5. Hypertensive heart disease 6. Diabetes type II, insulin dependent, uncontrolled 7. History of uterine cancer 8. Hypothyroidism, uncontrolled 9. Fatty liver disease 10. Vitamin A deficiency 11. Vitamin D deficiency 12. Iron deficiency anemia 13. Hyperglycemia 14. Obstructive sleep apnea, new 15. Vitamin A deficiency 16. Vitamin D deficiency POSTOPERATIVE DIAGNOSES: 1. Morbid obesity due to excess calories 2. Body mass index of 67.7 3. Osteoarthritis of the ankles 4. Osteoarthritis of the lower back 5. Hypertensive heart disease 6. Diabetes type II, insulin dependent, uncontrolled 7. History of uterine cancer 8. Hypothyroidism, uncontrolled 9. Fatty liver disease 10. Vitamin A deficiency 11. Vitamin D deficiency 12. Iron deficiency anemia 13. Hyperglycemia 14. Obstructive sleep apnea, new 15. Vitamin A deficiency 16. Vitamin D deficiency 17. Left upper quadrant abdominal wall subcutaneous lipoma 3 x 2 cm 18. Moderate superficial chronic gastritis stomach OPERATION: 1. Robotic assisted da Shelia Xi laparoscopic transgastric Glenroy-en-Y gastric bypass, 100 cm antecolic antegastric Glenroy limb, with 25 mm Ethicon ILS 2. Intraoperative esophagogastrojejunoscopy. 3. Excision of subcutaneous abdominal wall lipoma left upper quadrant 3 x 2 cm ANESTHESIA: GETA and local ESTIMATED BLOOD LOSS: 20 mL Pathology: other (Subcutaneous lipoma left upper quadrant abdominal wall) COMPLICATIONS: NONE. INDICATIONS: Tamy Hanna is a 38-year-old female who comes with lifelong morbid obesity. As a result of her morbid obesity, she has developed hypertension, insulin dependent diabetes, chronic fatigue and multiple joint problems. Her family is at bedside. She reports poorly controlled diabetes. In fact, she has multiple new medical issues including obstructive sleep apnea. She is looking into a gastric bypass. At height of 5 feet 8.5 inches, her ideal body weight is 163 pounds. She comes in 426 pounds from 451 pounds, 2 months ago. She has lost 25 pounds in 2 months. Her body mass index was 67.7. She was 288 pounds overweight. A second-generation bariatric consent form was described in detail including the possibility of protein malnutrition, leaks, gastrojejunal stricture, venous thrombosis, need for further surgery for which he demonstrated understanding. Benefits and risks of the procedure were described at length. Informed consent was obtained. DESCRIPTION: The patient was brought into the operating room theater. She was placed supine. She had received Lovenox subcutaneously for DVT prophylaxis. Additionally she had Peridex oral solution as an oral decontaminant. After general induction, the abdomen was prepped and draped in standard sterile fashion. Ioban draping was placed along the abdomen. A robotic da Shelia Xi system was prepped and primed. The xiphoid to umbilicus was 30 cm. Incisions were proposed at 15 cm from the xiphoid. Proposed port sites were marked with indelible marker along the anterior axillary line bilaterally, mid clavicular line bilaterally with each port marked 10 cm from each other. The robotic stapler port was marked for the right midclavicular line including along the left midclavicular line. A 5 mm 0 degrees laparoscopic trocar entry was performed along the left upper quadrant. The abdomen was insufflated to 15 mmHg pressure, which was tolerated well. Diagnostic laparoscopy demonstrated no injury to bowel, viscera, or mesentery. The liver edge was sharp. An 8 mm camera port was placed left lateral to the umbilicus at the epigastrium, 15 cm distal to the xiphoid. Next, 12-mm robot stapler port was placed along the right mid abdomen. An 12 mm port was exchanged along the left upper quadrant. An 8 mm port was placed on the left lateral abdominal wall under direct visualization Please note that the ports were placed 18 to 20 cm away from the target anatomy of the stomach. Care was taken to check that each robotic arm was safely away from collision with the bed or the patient. At the epigastrium, a medium sized Bryan liver retractor was placed under direct visualization with the Iron Commercial Sales Manager placed under the right shoulder of the patient. Additionally, 25 mm Ethicon ILS anvil was entered into the left upper quadrant incision after placing a green extension tip with uncut 3-0 silk at the Green tip and secured outside the skin using hemostat. The patient was repositioned in reverse Trendelenburg position at 20-degrees after lowering the bed. A 30 camera was used for the entire case. The robot was docked over the patient. Using grasper for arm 3, a grasper for arm 1, including vessel sealer for arm 4, the robotic system was docked and primed as described. Instruments were interchanged by the legal document assistant including endoscissors, the needle special needs bus driver, and stapler. An intraoperative upper endoscopy was performed for surveillance of the stomach where gastritis was identified. The stomach was suctioned of bile over 100 mL. The scope was left in place in the upper portion of the stomach. I had sat at the console. Attention was brought to creation of the gastric pouch using transgastric approach. At the distal stomach a transverse 3-cm incision was made for entry of the 25 mm anvil and its green attachment piece. The anvil was navigated at the gastric cardia between the second and third veins. The Green extended tip was brought out through the anterior surface of the stomach after using Bovie c autery. The anvil tip was brought out through the stomach and secured by its suture. Next, the gastric pouch was fashioned after dissection was made along the retrogastric space to allow first firing of the robotic staple. Green loads of 60 mm staplers were used to divide the stomach to create the gastric pouch towards the angle of His. Green 60 mm victoria was used to fashion the stomach. Next, the greater omentum and transverse colon was elevated to identify the ligament of Treitz. The ligament of Treitz was identified and measured 60 cm antegrade and marked using 3-0 Silk. The jejunum was divided at the 60 cm point using 60-mm blue loads above the suture measurement. The biliopancreatic limb was held in place. The Glenroy limb was measured 100 cm in an antegrade fashion to avoid tension along the proposed gastrojejunal anastomosis. At 100 cm along the anti-mesenteric border of the Glenroy limb, a jejunojejunostomy was proposed whereby enterotomies were created along the biliopancreatic limb including the Glenroy limb using a Bovie cautery. A stay suture of 3-0 Slik was placed to align and create the anastomosis. The enterotomies along the anti-mesenteric borders were created followed by unidirectional fire from the patient's right side using 60 mm blue load Smart technology robotic stapler. The jejunojejunostomy was found to be hemostatic. The enterotomy was closed after horizontal mattress stitch of 3-0 silk used to elevate the enterotomy followed by closure with the robotic stapler blue load. The jejunal limb was temporarily tacked along the left upper quadrant. Attention was now brought to the creation of the gastrojejunostomy. The green extension anvil tip was discontinued. No torsion was found upon the Glenroy limb. Mild tension was identified as the limb was brought along the upper abdomen. The blind jejunal limb was previously opened using hook cautery. The 25-mm ILS stapler was brought through the left anterior lateral port site from the left side. The ILS stapler was brought through the open jejunal limb and its needle was deployed at the antimesenteric border where the anvil were mated for approximately 1 minute upon firing. The stapler was removed after irrigating the shaft of the instrument with warm normal saline. Donuts were found to be intact and on both sides. The [email or web address] Xi robot arms were then re-docked. I sat at the console. The open jejunal limb defect was closed using 45 mm blue loads after releasing any tension from the blind jejunal limb. Care was taken to avoid any long blind limb to avoid candycane syndrome. Reinforcement sutures were placed along the gastrojejunal anastomosis and placed along the 9:00 and 3 o'clock position using 3-0 Polysorb. The Lang and jejunojejunostomy mesenteric defects were obliterated by the intra-abdominal fat. I then went to the head of the bed to perform the esophagogastrojejunoscopy and a leak test. An Olympus gastroscope was passed along the posterior oropharynx which was unremarkable for any injury to the vocal cords. The scope was passed down to the proximal portion of the pouch, whereby no active bleeding was encountered. Excellent visualization of the gastrojejunostomy anastomosis, including the Glenroy limb was encountered with endoscopic image obtained. The anastomosis was found to be patent. The gastrointestinal tract was desufflated. No evidence of intrao perative leak was encountered as the gastric pouch and anastomosis were submerged under normal saline solution. The robot was then undocked. I then went back to the bedside of the patient, whereby with coordinated effort of the legal document assistant, irrigation was aspirated from the upper abdominal cavity. Tisseel was placed circumferentially over the anastomosis of the gastrojejunostomy. The fascial defect of the EEA stapler was closed using Jc Solis and 0 Vicryl. At the left upper quadrant abdominal wall a 3 x 2 cm subcutaneous lipoma was excised from the abdominal wall. All instruments and pneumoperitoneum were evacuated from the abdominal cavity. The port correlating with the EEA stapler device was cleansed with normal saline solution and hydrogen peroxide. The rest of incisions were reapproximated using 4-0 Monocryl in an interrupted subcuticular fashion. Local anesthetic was infiltrated along the skin for postop analgesia. Liquid glue was applied to the skin. OptiFoam dressing was placed along the ILS stapler site. At the end of the procedure, needle, sponge and instrument count had been verified correct by the flight readiness technician. He had tolerated the procedure well and was extubated and taken to the postanesthesia unit in stable condition. Intraoperative findings were described to the patient's family who were very pleased with the level of care. Total console time 121 minutes Operative Findings: 1. Biliopancreatic limb 60 cm 2. Bypass performed using 100 cm glenroy limb secondary to avoid increased tension at 150 cm. 3. Rodas defect and jejunojejunostomy defect obliterated by moderate intra- abdominal fat. 4. Leak test negative with gastrojejunal anastomosis patent and hemostatic. 5. Multiple green staple loads used to fashion the gastric pouch 6. Reinforcement sutures were placed along the gastrojejunal anastomosis 7. Stanton liver and consistent with a two-week high-protein low carbohydrate diet 8. Low intra-abdominal adhesions greater omentum undisturbed
[2018-11-22] MEDS: HYDROmorphone 1 MG/ML 1 ML SYRINGE IVP ONE ×2 (17:41→17:47)
[2018-11-22 17:47] LABS: Glucose,Whole Blood 233 mg/dL (75-99)
[2018-11-22] MEDS ORDERED: INSULIN ASPART (NovoLOG) 100 UNIT/ML VIAL SQ ONE (18:01)
[2018-11-22 19:31] VITALS: BMI 63.0
[2018-11-22] MEDS: HYOSCYAMINE ORAL DROPS 1.875 MG/15 ML BOTTLE PO SCH ×2 (19:31→23:16)
[2018-11-22] MEDS: ACETAMINOPHEN IV (For NPO) 1,000 MG in EMPTY BAG 1 BAG IVPB SCH ×2 (19:32→23:15)
[2018-11-22] MEDS: METOCLOPRAMIDE 5 MG/ML 2 ML VIAL IVP SCH ×2 (19:32→23:16)
[2018-11-22] MEDS: SIMETHICONE 40 MG/0.6 ML DROPS 2,000 MG/30 ML BOTTLE PO SCH ×2 (19:32→23:16)
[2018-11-22] MEDS: 0.9% NACL WITH KCL 20 MEQ/L 1,000 ML IV SCH ×2 (19:34→23:02)
[2018-11-22] MEDS: ALBUTEROL NEBULIZED 2.5 MG/3 ML INHALATION SCH (19:36)
[2018-11-22 20:14] LABS: Glucose,Whole Blood 194 mg/dL (75-99)
[2018-11-22] MEDS: LOSARTAN 50 MG TAB PO SCH (20:54)
[2018-11-22] MEDS: ceFAZolin 3 GM in SODIUM CHLORIDE 0.9% 100 ML IVPB SCH (20:54)
[2018-11-23] MEDS: ACETAMINOPHEN IV (For NPO) 1,000 MG in EMPTY BAG 1 BAG IVPB SCH ×2 (05:15→12:59)
[2018-11-23] MEDS: ceFAZolin 3 GM in SODIUM CHLORIDE 0.9% 100 ML IVPB SCH (05:16)
[2018-11-23] MEDS: HYOSCYAMINE ORAL DROPS 1.875 MG/15 ML BOTTLE PO SCH ×4 (05:16→23:09)
[2018-11-23] MEDS: 0.9% NACL WITH KCL 20 MEQ/L 1,000 ML IV SCH ×4 (05:16→21:16)
[2018-11-23] MEDS: ENOXAPARIN 40 MG/0.4 ML SYRINGE SQ SCH (05:16)
[2018-11-23] MEDS: METOCLOPRAMIDE 5 MG/ML 2 ML VIAL IVP SCH ×4 (05:16→23:10)
[2018-11-23] MEDS: SIMETHICONE 40 MG/0.6 ML DROPS 2,000 MG/30 ML BOTTLE PO SCH ×4 (05:16→23:10)
[2018-11-23] MEDS: LACTATED RINGERS 1,000 ML IV SCH (05:17)
[2018-11-23 06:27] LABS: Anisocytosis Slight; Basophils % (A) 0 %; Eosinophils % (A) 0 %; HCT 40.8 % (34.0-46.0); Hypochromasia Moderate; Lymphocytes # (A) 1.8 k/uL (1.0-4.8); Lymphocytes % (A) 12 %; MCH 24.5 pg (25.0-35.0); MCHC 29.4 g/dL (31.0-37.0); MCV 83.2 fL (80.0-100.0); Mean Platelet Volume 7.3; Monocytes # (A) 0.6 k/uL (0-1.0); Monocytes % (A) 4 %; Neutrophils # (A) 12.5 k/uL (1.3-7.7); Neutrophils % (A) 83 %; Platelet Count 349 k/uL (150-450); RDW 17.5 % (11.5-15.5); WBC 15.1 k/uL (3.8-10.6)
[2018-11-23 06:34] LABS: African American GFR (CKD) >90 (>60 ml/min/1.73 sqM); Anion Gap 10 mmol/L; Blood Urea Nitrogen 11 mg/dL (7-17); Calcium 8.9 mg/dL (8.4-10.2); Carbon Dioxide 23 mmol/L (22-30); Chloride 105 mmol/L (98-107); Phosphorus 3.8 mg/dL (2.5-4.5); Potassium 4.5 mmol/L (3.5-5.1); Sodium 138 mmol/L (137-145)
[2018-11-23] MEDS: ALBUTEROL NEBULIZED 2.5 MG/3 ML INHALATION SCH ×4 (07:58→19:38)
[2018-11-23] MEDS: PANTOPRAZOLE 40 MG/10 ML VIAL IV SCH (08:51)
[2018-11-23] MEDS: HYDROmorphone 1 MG/ML 1 ML SYRINGE IVP PRN ×2 (08:52→20:43)
[2018-11-23] MEDS: metFORMIN 500 MG TAB PO SCH (08:53)
[2018-11-23 12:10] LABS: Glucose,Whole Blood 159 mg/dL (75-99)
[2018-11-23] MEDS: INSULIN ASPART (NovoLOG) 100 UNIT/ML VIAL SQ SCH ×3 (12:59→20:38)
--- NOTE | 2018-11-23 13:08 | P.PN ---
<Selina Aguero Sky - Last Filed: 11/23/18 13:02> Subjective Progress Note Date: 11/23/18 CHIEF COMPLAINT: Morbid obesity HISTORY OF PRESENT ILLNESS: 38-year-old female who is status post Rio-en-Y gastric bypass. Postop day #1. Patient examined this morning. She is sitting up in the chair. She worked with physical therapy and ambulated in the hallway. She reports her abdominal pain is tolerable at this time. She is tolerating clear liquid diet. Denies nausea or vomiting. Voiding without difficulty. Vital signs have been stable. She is afebrile. Blood sugars ranging from [id number] over the last 24 hours. PHYSICAL EXAM: VITAL SIGNS: Reviewed GENERAL: Well-developed in no acute distress. HEENT: No sclera icterus. Extraocular movements grossly intact. Moist buccal mucosa. Head is atraumatic, normocephalic. Hears conversational speech. No nasal drainage. NECK: Supple without lymphadenopathy. CHEST: Non-labored respirations and equal bilateral excursions. CARDIOVASCULAR: Regular rate with regular rhythm. Palpable 2+ radial pulses. ABDOMEN: Obese. Soft. Nondistended. Surgical incision sites clean dry and intact. MUSCULOSKELETAL: No clubbing, cyanosis or edema. NEUROLOGIC: No focal or lateralizing signs. Cranial nerves II through XII grossly intact. PSYCH: Appropriate affect. Alert and oriented to person, place and time. SKIN: Well perfused. Good skin turgor. ASSESSMENT: 1. Morbid obesity due to excess calories 2. Body mass index of 67.7 3. Osteoarthritis of the ankles 4. Osteoarthritis of the lower back 5. Hypertensive heart disease 6. Diabetes type II, insulin dependent, uncontrolled 7. History of uterine cancer 8. Hypothyroidism, uncontrolled 9. Fatty liver disease 10. Vitamin A deficiency 11. Vitamin D deficiency 12. Iron deficiency anemia 13. Hyperglycemia 14. Obstructive sleep apnea, new 15. Vitamin A deficiency 16. Vitamin D deficiency PLAN: 1. Continue bariatric clear liquid diet 2. Activity as tolerated 3. Incentive spirometer 10 times an hour while awake 4. Pain control. Add Clio Elixir PRN. 5. Begin NovoLog sliding scale ACHS. Resume Metformin but modify dose to 500mg daily. 6. Anticipate discharge home tomorrow Nurse practitioner note has been reviewed by physician. Signing provider agrees with the documented findings, assessment, and plan of care. Objective - Vital Signs Vital signs: Vital Signs Temp 98.1 F 11/23/18 07:20 Pulse 90 11/23/18 11:46 Resp 16 11/23/18 11:46 BP 118/72 11/23/18 07:20 Pulse Ox 93 L 11/23/18 07:58 Intake & Output 11/22/18 11/23/18 11/23/18 18:59 06:59 18:59 Intake Total 4800 150 Output Total 280 1000 Balance 4520 -1000 150 Weight 193.5 kg 193.5 kg Intake: IV 4800 Oral 150 Output: Urine 260 1000 Estimated Blood Loss 20 Other: Voiding Method Indwelling Catheter - Labs CBC & Chem 7: 11/23/18 05:38 11/23/18 05:38 Labs: Abnormal Lab Results - Last 24 Hours (Table) 11/22/18 11/22/18 11/22/18 Range/Units 13:43 15:02 16:24 WBC (3.8-10.6) k/uL MCH (25.0-35.0) pg MCHC (31.0-37.0) g/dL RDW (11.5-15.5) % Neutrophils # (1.3-7.7) k/uL POC Glucose (mg/dL) 172 H 225 H 240 H (75-99) mg/dL 11/22/18 11/22/18 11/23/18 Range/Units 17:43 20:03 05:38 WBC 15.1 H (3.8-10.6) k/uL MCH 24.5 L (25.0-35.0) pg MCHC 29.4 L (31.0-37.0) g/dL RDW 17.5 H (11.5-15.5) % Neutrophils # 12.5 H (1.3-7.7) k/uL POC Glucose (mg/dL) 233 H 194 H (75-99) mg/dL 11/23/18 Range/Units 11:48 WBC (3.8-10.6) k/uL MCH (25.0-35.0) pg MCHC (31.0-37.0) g/dL RDW (11.5-15.5) % Neutrophils # (1.3-7.7) k/uL POC Glucose (mg/dL) 159 H (75-99) mg/dL Assessment and Plan (1) Morbid obesity Current Visit: Yes Status: Acute Code(s): E66.01 - MORBID (SEVERE) OBESITY DUE TO EXCESS CALORIES SNOMED Code(s): 747321623 <Phoebe Winter N - Last Filed: 11/24/18 08:20> Subjective Patient seen and evaluated in the evening. She is feeling well. She is ambulating. Blood sugars has responded well to metformin. Likely discharge home with metformin. All insulin will be discontinued. Discharge instructions carefully reviewed. Objective - Vital Signs Vital signs: Vital Signs Temp 99.3 F 11/24/18 02:30 Pulse 84 11/24/18 08:03 Resp 18 11/23/18 18:40 BP 132/69 11/24/18 02:30 Pulse Ox 95 11/24/18 03:14 Intake & Output 11/23/18 11/24/18 11/24/18 18:59 06:59 18:59 Intake Total 350 480 Balance 350 480 Weight 193.5 kg Intake: Oral 350 480 Other: Voiding Method Toilet # Voids 3 - Labs CBC & Chem 7: 11/23/18 05:38 11/23/18 05:38 Labs: Abnormal Lab Results - Last 24 Hours (Table) 11/23/18 11/23/18 11/23/18 Range/Units 11:48 16:43 20:36 POC Glucose (mg/dL) 159 H 133 H 122 H (75-99) mg/dL 11/24/18 Range/Units 06:53 POC Glucose (mg/dL) 120 H (75-99) mg/dL
[2018-11-23 16:55] LABS: Glucose,Whole Blood 133 mg/dL (75-99)
[2018-11-23] MEDS: HYDROcodone/APAP 15 ML SOLUTION PO PRN (17:26)
[2018-11-23 17:47] LABS: Hemoglobin A1C 5.9 % (4.0-6.0)
[2018-11-23 20:38] LABS: Glucose,Whole Blood 122 mg/dL (75-99)
[2018-11-23] MEDS: LOSARTAN 50 MG TAB PO SCH (20:44)
[2018-11-24] MEDS: HYDROcodone/APAP 15 ML SOLUTION PO PRN ×2 (03:08→09:27)
[2018-11-24] MEDS: 0.9% NACL WITH KCL 20 MEQ/L 1,000 ML IV SCH (03:08)
[2018-11-24] MEDS: ENOXAPARIN 40 MG/0.4 ML SYRINGE SQ SCH (03:08)
[2018-11-24] MEDS: LACTATED RINGERS 1,000 ML IV SCH (05:13)
[2018-11-24] MEDS: METOCLOPRAMIDE 5 MG/ML 2 ML VIAL IVP SCH (05:13)
[2018-11-24] MEDS: HYOSCYAMINE ORAL DROPS 1.875 MG/15 ML BOTTLE PO SCH (05:13)
[2018-11-24] MEDS: SIMETHICONE 40 MG/0.6 ML DROPS 2,000 MG/30 ML BOTTLE PO SCH (05:13)
[2018-11-24 07:06] LABS: Glucose,Whole Blood 120 mg/dL (75-99)
[2018-11-24] MEDS: ALBUTEROL NEBULIZED 2.5 MG/3 ML INHALATION SCH ×2 (07:52→12:16)
[2018-11-24 08:22] VITALS: BP 141/80; PULSE 106; RESP 16; TEMP 98.4
[2018-11-24 08:55] LABS: Anisocytosis Slight; Basophils # (A) 0.1 k/uL (0-0.2); Basophils % (A) 1 %; Eosinophils # (A) 0.1 k/uL (0-0.7); Eosinophils % (A) 1 %; HCT 42.1 % (34.0-46.0); HGB 12.1 gm/dL (11.4-16.0); Hypochromasia Marked; Lymphocytes # (A) 2.1 k/uL (1.0-4.8); Lymphocytes % (A) 18 %; MCHC 28.7 g/dL (31.0-37.0); MCV 87.1 fL (80.0-100.0); Mean Platelet Volume 7.7; Monocytes # (A) 0.5 k/uL (0-1.0); Monocytes % (A) 5 %; Neutrophils # (A) 8.5 k/uL (1.3-7.7); Neutrophils % (A) 75 %; Platelet Count 265 k/uL (150-450); RBC 4.83 m/uL (3.80-5.40); RDW 17.8 % (11.5-15.5); WBC 11.4 k/uL (3.8-10.6)
[2018-11-24] MEDS: INSULIN ASPART (NovoLOG) 100 UNIT/ML VIAL SQ SCH (09:26)
[2018-11-24] MEDS: PANTOPRAZOLE 40 MG/10 ML VIAL IV SCH (09:27)
[2018-11-24] MEDS: metFORMIN 500 MG TAB PO SCH (09:27)
[2018-11-24 11:26] LABS: Glucose,Whole Blood 140 mg/dL (75-99)
--- NOTE | 2018-11-24 13:09 | P.DS ---
<Selina Aguero - Last Filed: 11/24/18 13:07> Providers Expected date of discharge: 11/24/18 - Discharge Diagnosis(es) (1) Morbid obesity Status: Acute Hospital Course: 38-year-old female who is status post Rio-en-Y gastric bypass. Patient did well postoperatively without any immediate complications. She is tolerating liquid diet. No nausea or vomiting. Vital signs have been stable. Pain controlled on oral medications. Blood sugars well controlled on Metformin. She is stable for discharge home today. Please see EMR for further hospital course details. Discharge diagnosis: 1. Morbid obesity due to excess calories 2. Body mass index of 67.7 3. Osteoarthritis of the ankles 4. Osteoarthritis of the lower back 5. Hypertensive heart disease 6. Diabetes type II, insulin dependent, uncontrolled 7. History of uterine cancer 8. Hypothyroidism, uncontrolled 9. Fatty liver disease 10. Vitamin A deficiency 11. Vitamin D deficiency 12. Iron deficiency anemia 13. Hyperglycemia 14. Obstructive sleep apnea, new 15. Vitamin A deficiency 16. Vitamin D deficiency Nurse practitioner note has been reviewed by physician. Signing provider agrees with the documented findings, assessment, and plan of care. Plan - Discharge Summary Discharge Rx Participant: Yes New Discharge Prescriptions: New Bisacodyl [Dulcolax] 5 mg PO DAILY PRN #10 tablet. PRN Reason: Constipation metFORMIN HCL [Glucophage] 500 mg PO DAILY #30 tab Simethicone 40 mg/0.6 ml Drops [Mylicon Drops] 40 mg PO PCHS PRN #30 ml PRN Reason: Gas Omeprazole 40 mg PO DAILY #30 capsule. Levothyroxine Sodium [Synthroid] 100 mcg PO DAILY #30 tab Acetaminophen Oral Susp (Peds) [Tylenol Oral Susp For Peds (Grape)] 500 mg PO Q4H PRN #400 bottle PRN Reason: Pain Ondansetron Odt [Zofran Odt] 4 mg PO Q8HR PRN #9 tab PRN Reason: Nausea HYDROcodone/APAP [Hope Elixir 7.5-325Mg/15Ml] 15 ml PO Q6HR PRN 3 Days #180 ml PRN Reason: Pain Continue Losartan [Cozaar] 50 mg PO HS Discontinued metFORMIN HCL 1,000 mg PO QAM Atorvastatin [Lipitor] 10 mg PO HS Insulin Glargine [Lantus] 20 unit SQ BID INSULIN LISPRO (HumaLOG) [HumaLOG] See Protocol SQ ACHS Levothyroxine Sodium [Synthroid] 50 mcg PO DAILY #30 tab Vitamin A 8,000 unit PO DAILY #30 capsule Ergocalciferol [Vitamin D2 (DRISDOL)] 50,000 unit PO Q7D #12 cap Discharge Medication List Losartan [Cozaar] 50 mg PO HS 07/13/17 [History] Acetaminophen Oral Susp (Peds) [Tylenol Oral Susp For Peds (Grape)] 500 mg PO Q4H PRN #400 bottle 11/24/18 [Rx] Bisacodyl [Dulcolax] 5 mg PO DAILY PRN #10 tablet. 11/24/18 [Rx] HYDROcodone/APAP [Hope Elixir 7.5-325Mg/15Ml] 15 ml PO Q6HR PRN 3 Days #180 ml 11/24/18 [Rx] Levothyroxine Sodium [Synthroid] 100 mcg PO DAILY #30 tab 11/24/18 [Rx] Omeprazole 40 mg PO DAILY #30 capsule. 11/24/18 [Rx] Ondansetron Odt [Zofran Odt] 4 mg PO Q8HR PRN #9 tab 11/24/18 [Rx] Simethicone 40 mg/0.6 ml Drops [Mylicon Drops] 40 mg PO PCHS PRN #30 ml 11/24/18 [Rx] metFORMIN HCL [Glucophage] 500 mg PO DAILY #30 tab 11/24/18 [Rx] Follow up Appointment(s)/Referral(s): Irma Harp MD [Primary Care Provider] - 12/02/18 11:00 am Bariatric [place], [place] [NON-STAFF] - 11/26/18 10:00 am Patient Instructions/Handouts: Abdominal Binder (DC), Nutrition after Bariatric Surgery (GEN) Activity/Diet/Wound Care/Special Instructions: Follow-up at the bariatric center. Check blood sugars at least twice daily. Hold diabetic medications of blood sugar is less than 150. NO lifting over 4 pounds in 4 weeks, December 23. May shower. No bathtub soaks. Dressings to be removed by your doctor in the office. Drink 64 oz of fluid daily. Start protein shakes on . Notify bariatric center for temp over 101.0, increased pain, drainage from incisions. No straws or carbonated beverages. Liquid diet only. Sugar content should be less than 6 g to avoid dumping syndrome. Take MOM for constipation. CRUSH, OPEN, OR CUT TABLETS LARGER THAN A SIZE OF A TIC TAC Discharge Disposition: HOME SELF-CARE <Phoebe Winter - Last Filed: 11/25/18 14:13> Providers Date of admission: 11/22/18 10:28 Attending physician: Phoebe Winter Primary care physician: Irma Harp
== END 2018-11-24 13:06 | disposition home or self-care (01) | DRG 621 ==
LOC: 2ORMAIN 10:28 → 4SSUR 17:05
PROVIDERS: ADMIT Surgery Plastic and Reconstructive Surgery; ATTEND Surgery Plastic and Reconstructive Surgery
PROC: 0JB80ZZ Excision of Abdomen Subcutaneous Tissue and Fascia, Open Approach (ICD-10-PCS; 2018-11-22)
PROC: 8E0W4CZ Robotic Assisted Procedure of Trunk Region, Percutaneous Endoscopic Approach (ICD-10-PCS; 2018-11-22)
PROC: 0DJ08ZZ Inspection of Upper Intestinal Tract, Via Natural or Artificial Opening Endoscopic (ICD-10-PCS; 2018-11-22)
PROC: 0D164ZA Bypass Stomach to Jejunum, Percutaneous Endoscopic Approach (ICD-10-PCS; principal; 2018-11-22 12:15)
DX: E66.01 Morbid (severe) obesity due to excess calories (principal); E11.65 Type 2 diabetes mellitus with hyperglycemia; K76.0 Fatty (change of) liver, not elsewhere classified; I11.9 Hypertensive heart disease without heart failure; Z68.44 Body mass index [BMI] 60.0-69.9, adult; D17.1 Benign lipomatous neoplasm of skin and subcutaneous tissue of trunk; K44.9 Diaphragmatic hernia without obstruction or gangrene; K29.30 Chronic superficial gastritis without bleeding; M19.072 Primary osteoarthritis, left ankle and foot; M19.071 Primary osteoarthritis, right ankle and foot; E03.9 Hypothyroidism, unspecified; D50.9 Iron deficiency anemia, unspecified; K20.8 Other esophagitis; R53.82 Chronic fatigue, unspecified; G47.33 Obstructive sleep apnea (adult) (pediatric); M47.9 Spondylosis, unspecified; E50.9 Vitamin A deficiency, unspecified; E55.9 Vitamin D deficiency, unspecified; Z79.4 Long term (current) use of insulin; Z79.890 Hormone replacement therapy; Z79.899 Other long term (current) drug therapy; Z71.3 Dietary counseling and surveillance; Z90.710 Acquired absence of both cervix and uterus; Z87.891 Personal history of nicotine dependence; Z85.42 Personal history of malignant neoplasm of other parts of uterus; Z91.048 Other nonmedicinal substance allergy status; Z83.49 Family history of other endocrine, nutritional and metabolic diseases; Z82.69 Family history of other diseases of the musculoskeletal system and connective tissue; Z83.3 Family history of diabetes mellitus; Z83.6 Family history of other diseases of the respiratory system; Z81.4 Family history of other substance abuse and dependence; Z82.49 Family history of ischemic heart disease and other diseases of the circulatory system; Z83.79 Family history of other diseases of the digestive system; E78.5 Hyperlipidemia, unspecified; K66.0 Peritoneal adhesions (postprocedural) (postinfection)
CPT/HCPCS: 64488; 80051; 82310; 82565; 83036; 83735; 84100; 84443; 84520; 85025; 86850; 86870; 86880; 86900; 86901; 86902; 88304; 94640; 94760; 94762

== ENCOUNTER → 2018-11-26 | Outpatient (CLI) | payer MEDICARE, OTHER ==
[2018-11-26 10:51] VITALS: TEMP 98.1; BMI 64.1
[2018-11-26 10:53] VITALS: BP 163/79; PULSE 94
--- NOTE | 2018-11-26 18:25 | P.PN ---
Subjective Progress Note Date: 11/26/18 DATE OF SERVICE: 11/26/2018 CHIEF COMPLAINT: Morbid obesity HISTORY OF PRESENT ILLNESS: Tamy Hanna is a 38-year-old female status post gastric bypass, 11/22/2018. She is POD 4. She is passing flatus and have having bowel movements. Blood sugars are between 110s to 130s. She is tolerating diet. She reports occasional pressure of the epigastrium with drinking fluids. Otherwise no moderate abdominal pain. No fevers. At height of 5 feet 8.5 inches, her ideal body weight is 163 pounds. She comes was 451 pounds with body mass index 67.7. Today she comes in 427 pounds, BMI 64.1. Weight loss of 24 pounds in 2 months. Lifetime weight loss of 24 pounds. Percent excess weight loss 8%. She is 264 pounds overweight. PHYSICAL EXAM: VITAL SIGNS: Height 5 foot 8.5 inches, weight 427 pounds. BMI 64.1 Vital Signs Temp 98.1 F 11/26/18 10:49 Pulse 94 11/26/18 10:49 Resp BP 163/79 11/26/18 10:49 Pulse Ox GENERAL: Well-developed in no acute distress. HEENT: No scleral icterus. Extraocular movements grossly intact. Hears conversational speech. No nasal drainage. NECK: Supple without lymphadenopathy. CHEST: Nonlabored respirations with equal bilateral excursions. CARDIOVASCULAR: Tachycardic. Distal 2+ pulses. ABDOMEN: Obese, soft. Dressing discontinued. No infection. MUSCULOSKELETAL: No clubbing, cyanosis. Gross strength 5/5 distal lower extremities. NEURO: No focal or lateralizing signs. Cranial nerves 2 through 12 grossly within normal limits. PSYCH: Appropriate affect. Alert and oriented to person, place and time. SKIN: Good skin turgor. Well perfused. ASSESSMENT: 1. Morbid obesity due to excess calories 2. Body mass index of 67.7 to 64.1 3. Osteoarthritis of the ankles 4. Osteoarthritis of the lower back 5. Hypertensive heart disease 6. Diabetes type II, insulin dependent, uncontrolled 7. History of uterine cancer 8. Hypothyroidism 9. Fatty liver disease 10. Vitamin A deficiency 11. Vitamin D deficiency 12. Iron deficiency anemia 13. Hyperglycemia 14. Obstructive sleep apnea, new 15. Vitamin A deficiency 16. Vitamin D deficiency 17. Status post gastric bypass PLAN: 1. Follow-up in one week. 2. Start protein shakes today. Objective - Vital Signs Vital signs: Vital Signs Temp 98.1 F 11/26/18 10:49 Pulse 94 11/26/18 10:49 Resp BP 163/79 11/26/18 10:49 Pulse Ox Intake & Output 11/25/18 11/26/18 11/26/18 18:59 06:59 18:59 Weight 194.138 kg
== END | disposition home or self-care (01) ==
LOC: BARWHC3 09:53
PROVIDERS: ATTEND Surgery Plastic and Reconstructive Surgery
DX: F33.42 Major depressive disorder, recurrent, in full remission (principal); E11.69 Type 2 diabetes mellitus with other specified complication; Z79.84 Long term (current) use of oral hypoglycemic drugs; E78.2 Mixed hyperlipidemia; G47.33 Obstructive sleep apnea (adult) (pediatric); Z79.4 Long term (current) use of insulin; Z79.899 Other long term (current) drug therapy
CPT/HCPCS: 99211

== ENCOUNTER → 2018-12-01 | Outpatient (CLI) | payer MEDICARE, OTHER ==
[~2018-12-01] MED LIST changes: -CHLORHEXIDINE GLUCONATE 15 ML CUP MUCOUS MEM ONE; +DEXAMETHASONE SOD PHOSPHATE 10 MG/ML 1 ML VIAL IM STA; -DEXAMETHASONE SOD PHOSPHATE 10 MG/ML 1 ML VIAL IV ONE; -ENOXAPARIN 40 MG/0.4 ML SYRINGE SQ STA; -LIDOCAINE 1% 20 ML VIAL (10MG/ML) FOR IV START INTRADERMA PRN; -MIDAZOLAM 2 MG/2 ML VIAL IV PRN; -PANTOPRAZOLE 40 MG/10 ML VIAL IV STA; -ceFAZolin 3 GM in SODIUM CHLORIDE 0.9% 100 ML IVPB ONE; -fentaNYL (PF) 50 MCG/ML 2 ML AMP IV PRN
--- NOTE | 2018-12-01 13:26 | P.PN ---
Subjective Progress Note Date: 12/01/18 She is feeling well. Facebook twins. She has energy. BSG less than 120. She has more contact dermatitis from the glue. No fevers or chills. No infection at her incisions. She is drinking better. Dexamethasone for severe dermatitis.
[2018-12-01 13:53] VITALS: BMI 61.1
[2018-12-01 14:03] VITALS: BP 134/87; PULSE 96; TEMP 97.9
== END | disposition home or self-care (01) ==
LOC: BARWHC3 12:45
PROVIDERS: ATTEND Surgery Plastic and Reconstructive Surgery
DX: E66.01 Morbid (severe) obesity due to excess calories (principal); L25.9 Unspecified contact dermatitis, unspecified cause; Z68.44 Body mass index [BMI] 60.0-69.9, adult
CPT/HCPCS: 97803; J1100; G0463; 99211

== ENCOUNTER → 2018-12-22 | Outpatient (CLI) | payer MEDICARE, OTHER ==
[2018-12-22 13:35] VITALS: BP 131/84; PULSE 103; TEMP 97.2; BMI 59.5
--- NOTE | 2018-12-22 13:41 | P.PN ---
Subjective Progress Note Date: 12/22/18 Highest 460 May 2018. She has happy with her weight loss. Las time under 400 pounds 15 years ago. Blood sugar is 3 times only for metformin. BSG 121 to 130. Protein intake 75 grams. She is only getting 50 to 60 grams. No dysphagia. No abdominal pain. She feels full. She is getting 27 g. Bariatric labs. ASSESSMENT: 1. Gastric bypass PLAN: 1. She is happy with weight loss.
[2018-12-22 15:26] LABS: Partial Thromboplastin Time 28.3 sec (22.0-30.0); Prothrombin Time 10.7 sec (9.0-12.0)
[2018-12-22 16:35] LABS: Anisocytosis Slight; HCT 43.8 % (34.0-46.0); HGB 13.9 gm/dL (11.4-16.0); Hypochromasia Moderate; MCH 26.1 pg (25.0-35.0); MCHC 31.7 g/dL (31.0-37.0); Mean Platelet Volume 7.9; Platelet Count 278 k/uL (150-450); RBC 5.34 m/uL (3.80-5.40); RDW 16.5 % (11.5-15.5)
[2018-12-22 16:41] LABS: MCV 82.1 fL (80.0-100.0)
[2018-12-22 20:10] LABS: % Iron Saturation 16.44 (12.00-45.00); African American GFR (CKD) 81.6 (60.0-200.0); Albumin 4.4 g/dL (3.80-4.90); Anion Gap 13.3 mmol/L (4.00-12.00); Calcium 9.4 mg/dL (8.7-10.3); Carbon Dioxide 24.7 mmol/L (21.6-31.8); Chol/HDL Ratio 5.58; Globulin 2.2 g/dL (1.6-3.3); LDL Cholesterol,Calculated 106.4 mg/dL (0.0-131.0); Phosphorus 3.3 mg/dL (2.4-5.1); Potassium 4.4 mmol/L (3.5-5.5); Total Bilirubin 0.5 mg/dL (0.3-1.2); Total Protein 6.6 g/dL (6.2-8.2); VLDL Calculation 44.6 mg/dL (5.00-40.00)
[2018-12-22 20:13] LABS: Ferritin 393.6 ng/mL (10.0-291.0)
[2018-12-22 20:14] LABS: Folate, Serum 7.6 ng/mL
[2018-12-22 21:54] LABS: Hemoglobin A1C 5.9 % (4.0-6.0)
[2018-12-23 11:20] LABS: Zinc, Serum 74 ug/dL (60-130)
[2018-12-23 15:09] LABS: Vitamin A 37 ug/dL (38-106)
[2018-12-24 11:27] LABS: Vit B1(Thiamine) 42 ug/L (38-122)
== END | disposition home or self-care (01) ==
LOC: BARWHC3 12:44
PROVIDERS: ATTEND Surgery Plastic and Reconstructive Surgery
DX: E66.01 Morbid (severe) obesity due to excess calories (principal); Z98.84 Bariatric surgery status; Z68.43 Body mass index [BMI] 50.0-59.9, adult; Z79.84 Long term (current) use of oral hypoglycemic drugs; E21.1 Secondary hyperparathyroidism, not elsewhere classified; E89.1 Postprocedural hypoinsulinemia; D50.9 Iron deficiency anemia, unspecified; K90.9 Intestinal malabsorption, unspecified; E55.9 Vitamin D deficiency, unspecified; K76.9 Liver disease, unspecified; N19 Unspecified kidney failure; K50.90 Crohn's disease, unspecified, without complications
CPT/HCPCS: 84255; 84134; 84425; 80061; 80053; 82607; 82728; 82525; 82746; 83540; 83550; 83735; 84100; 84443; 84590; 84630; 85027; 85610; 85730; 82306; 83970; 83036; 97803; G0463; 99211

== ENCOUNTER → 2019-03-02 | Outpatient (CLI) | payer MEDICARE ==
[2019-03-02 15:24] VITALS: BP 131/85; PULSE 87; TEMP 97.8; BMI 53.3
--- NOTE | 2019-03-02 16:48 | P.PN ---
Subjective Progress Note Date: 03/02/19 She reports nausea with meat. She has troubles with textured. She has lost 80 pounds in 2 months. She is happy with her weight loss. No GERD. Protein intake of 50 gr daily. No hair loss. She has a lot of energy. She is getting clothes easier. She is exercising daily. She has lost PLAN: 1. Increase protein 75 grams 2. Upper endoscopy 3. Labs Adjusted dose down for thyroid from 150 to 125 mcg daily Objective - Vital Signs Vital signs: Vital Signs Temp 97.8 F 03/02/19 15:20 Pulse 87 03/02/19 15:20 Resp BP 131/85 03/02/19 15:20 Pulse Ox Intake & Output 03/01/19 03/02/19 03/02/19 18:59 06:59 18:59 Weight 161.479 kg
== END | disposition home or self-care (01) ==
LOC: BARWHC3 13:54
PROVIDERS: ATTEND Surgery Plastic and Reconstructive Surgery
DX: E66.01 Morbid (severe) obesity due to excess calories (principal)
CPT/HCPCS: 97803; G0463; 99211

== ENCOUNTER → 2019-03-03 | Outpatient (CLI) | payer MEDICARE ==
[2019-03-03 11:29] LABS: HGB 13.7 gm/dL (11.4-16.0); Hypochromasia Slight; MCH 26.8 pg (25.0-35.0); MCHC 31.9 g/dL (31.0-37.0); MCV 84.3 fL (80.0-100.0); Platelet Count 303 k/uL (150-450); RDW 15.4 % (11.5-15.5)
[2019-03-03 12:11] LABS: Partial Thromboplastin Time 25.1 sec (22.0-30.0); Prothrombin Time 10.6 sec (9.0-12.0)
[2019-03-03 17:39] LABS: % Iron Saturation 21.21 (12.00-45.00); African American GFR (CKD) 106.9 (60.0-200.0); Albumin 4.2 g/dL (3.80-4.90); Anion Gap 13.4 mmol/L (4.00-12.00); BUN/Creat Ratio 18.75 Ratio (12.00-20.00); Calcium 9.3 mg/dL (8.7-10.3); Carbon Dioxide 23.6 mmol/L (21.6-31.8); Chol/HDL Ratio 5.31; Ferritin 528.1 ng/mL (10.0-291.0); Folate, Serum 15.6 ng/mL; Globulin 2.1 g/dL (1.6-3.3); Magnesium 1.8 mg/dL (1.5-2.4); Non-African American GFR(CKD) 92.2 (60.0-200.0); Phosphorus 3.7 mg/dL (2.4-5.1); Potassium 4.5 mmol/L (3.5-5.5); Total Bilirubin 0.5 mg/dL (0.3-1.2); Total Protein 6.3 g/dL (6.2-8.2)
[2019-03-03 18:37] LABS: Hemoglobin A1C 6.1 % (4.0-6.0)
[2019-03-04 14:09] LABS: Zinc, Serum 83 ug/dL (60-130)
[2019-03-06 00:05] LABS: Selenium 78 mcg/L (63-160)
[2019-03-07 08:28] LABS: Vitamin A 29 ug/dL (38-106)
[2019-03-07 13:40] LABS: Vit B1(Thiamine) 60 ug/L (38-122)
== END | disposition home or self-care (01) ==
LOC: LABWHC1 10:43
PROVIDERS: ATTEND Surgery Plastic and Reconstructive Surgery
DX: E21.1 Secondary hyperparathyroidism, not elsewhere classified (principal); D50.9 Iron deficiency anemia, unspecified; K90.9 Intestinal malabsorption, unspecified; E44.0 Moderate protein-calorie malnutrition; E66.01 Morbid (severe) obesity due to excess calories; E55.9 Vitamin D deficiency, unspecified; K74.1 Hepatic sclerosis; N19 Unspecified kidney failure; K50.90 Crohn's disease, unspecified, without complications; E89.1 Postprocedural hypoinsulinemia
CPT/HCPCS: 36415; 80053; 80061; 82306; 82525; 82607; 82728; 82746; 83036; 83540; 83550; 83735; 83970; 84100; 84134; 84255; 84425; 84443; 84590; 84630; 85027; 85610; 85730

== ENCOUNTER → 2019-06-01 | Outpatient (CLI) | payer MEDICARE, OTHER ==
--- NOTE | 2019-06-01 14:43 | P.PN ---
Subjective Progress Note Date: 06/01/19 DATE OF SERVICE: 06/01/2019 CHIEF COMPLAINT: Status post gastric bypass HISTORY OF PRESENT ILLNESS: Tamy Hanna is a 38-year-old female status post gastric bypass, 11/22/2018. She is 6 months out. She has more energy. She exercise daily with 80 minutes on exercise bike, 30 minutes on treadmill, and she lifts weight. She has lost 120 pounds. She has hair loss. She has easy bruising. She denies food getting stuck. No further vomiting. She can eat chicken. She has troubles with seafood like shrimp and is not tolerable. She reports moist chicken goes down but dry foods causes some trouble. No reports of chest pain. At height of 5 feet 8.5 inches, her ideal body weight is 163 pounds. Highest 460 pounds with body mass index 69.1. Today she comes in 321 pounds from 355 pounds, 3 months ago. She has lost 33 pounds in 3 months. Her current BMI is 48.2. Lifetime weight loss of 139 pounds. Percent excess weight loss 47 %. She is 158 pounds overweight. PHYSICAL EXAM: VITAL SIGNS: Height 5 foot 8.5 inches, weight 321 pounds. BMI 48.2 Vital Signs Temp 97.9 F 06/01/19 15:34 Pulse 79 06/01/19 15:34 Resp BP 130/65 06/01/19 15:34 Pulse Ox Intake & Output 06/01/19 06/02/19 06/02/19 18:59 06:59 18:59 Weight 146.057 kg GENERAL: Well-developed in no acute distress. HEENT: No scleral icterus. Extraocular movements grossly intact. Hears conversational speech. No nasal drainage. NECK: Supple without lymphadenopathy. CHEST: Nonlabored respirations with equal bilateral excursions. CARDIOVASCULAR: Regular rate. Distal 2+ pulses. ABDOMEN: Obese, soft. No hernia. MUSCULOSKELETAL: No clubbing, cyanosis. NEURO: No focal or lateralizing signs. Cranial nerves 2 through 12 grossly within normal limits. PSYCH: Appropriate affect. Alert and oriented to person, place and time. SKIN: Good skin turgor. Well perfused. ASSESSMENT: 1. Morbid obesity due to excess calories 2. Body mass index of 67.7 to 48.2 3. Osteoarthritis of the ankles 4. Osteoarthritis of the lower back 5. Hypertensive heart disease 6. Diabetes type II, insulin dependent, uncontrolled, now resolved 7. History of uterine cancer 8. Hypothyroidism 9. Fatty liver disease 10. Vitamin A deficiency 11. Vitamin D deficiency 12. Iron deficiency anemia 13. Hyperglycemia 14. Obstructive sleep apnea, new 15. Vitamin A deficiency 16. Vitamin D deficiency 17. Status post gastric bypass PLAN: 1. She is doing very well with weight loss. 2. Recommend bariatric labs 3. New prescription of synthroid written down from 150 mcg to 125 mcg.
[2019-06-01 15:32] VITALS: BMI 48.2
[2019-06-01 15:36] VITALS: BP 130/65; PULSE 79; TEMP 97.9
== END ==
LOC: BARWHC3 13:50
PROVIDERS: ATTEND Surgery Plastic and Reconstructive Surgery
DX: E66.01 Morbid (severe) obesity due to excess calories (principal); Z68.42 Body mass index [BMI] 45.0-49.9, adult
CPT/HCPCS: 97803; 99211

== ENCOUNTER → 2019-06-20 | Outpatient (CLI) | payer MEDICARE, OTHER ==
[2019-06-20 10:11] LABS: HCT 43.7 % (34.0-46.0); HGB 13.7 gm/dL (11.4-16.0); Hypochromasia Slight; MCH 27.1 pg (25.0-35.0); MCHC 31.3 g/dL (31.0-37.0); MCV 86.7 fL (80.0-100.0); Platelet Count 247 k/uL (150-450); RBC 5.04 m/uL (3.80-5.40); RDW 14.6 % (11.5-15.5)
[2019-06-20 10:18] LABS: INR 0.9 (<1.2); Partial Thromboplastin Time 26.3 sec (22.0-30.0); Prothrombin Time 9.9 sec (9.0-12.0)
[2019-06-20 16:55] LABS: African American GFR (CKD) 125.6 (60.0-200.0); Albumin 3.9 g/dL (3.80-4.90); Albumin/Globulin Ratio 1.77 (1.60-3.17); Anion Gap 10.9 mmol/L (4.00-12.00); Calcium 9.2 mg/dL (8.7-10.3); Carbon Dioxide 25.1 mmol/L (21.6-31.8); Chol/HDL Ratio 4.73; Globulin 2.2 g/dL (1.6-3.3); LDL Cholesterol,Calculated 107.6 mg/dL (0.0-131.0); Non-African American GFR(CKD) 108.4 (60.0-200.0); Phosphorus 4.1 mg/dL (2.4-5.1); Potassium 4.3 mmol/L (3.5-5.5); Total Bilirubin 0.4 mg/dL (0.3-1.2); Total Protein 6.1 g/dL (6.2-8.2); VLDL Calculation 41.4 mg/dL (5.00-40.00)
[2019-06-20 17:02] LABS: Ferritin 251.2 ng/mL (10.0-291.0)
[2019-06-20 17:33] LABS: Folate, Serum 15.5 ng/mL
[2019-06-22 06:54] LABS: Vitamin A 39 ug/dL (38-106)
[2019-06-22 07:26] LABS: Vit B1(Thiamine) 54 ug/L (38-122)
== END | disposition home or self-care (01) ==
LOC: LABWHC1 09:20
PROVIDERS: ATTEND Surgery Plastic and Reconstructive Surgery
DX: E21.1 Secondary hyperparathyroidism, not elsewhere classified (principal); D50.9 Iron deficiency anemia, unspecified; K90.9 Intestinal malabsorption, unspecified; E55.9 Vitamin D deficiency, unspecified; K74.1 Hepatic sclerosis; N19 Unspecified kidney failure; K50.90 Crohn's disease, unspecified, without complications
CPT/HCPCS: 36415; 80053; 80061; 82306; 82525; 82607; 82728; 82746; 83540; 83550; 83735; 83970; 84100; 84134; 84255; 84425; 84443; 84590; 84630; 85027; 85610; 85730